=== PATIENT | female | born 1980 | race Asian ===

== ENCOUNTER → 2019-01-17 13:45 | Outpatient (CLI) | payer OTHER, SELFPAY ==
[2019-01-17 15:46] LABS: Blood Urea Nitrogen 16 mg/dL (7-17); Calcium 9.3 mg/dL (8.4-10.2); Carbon Dioxide 23 mmol/L (22-32); Chloride 100 mmol/L (98-107); Estimated Glomerular Filt Rate > 60.0 mL/min (>60); Glucose 358 mg/dL (70-100); HEMOLYSIS < 15 (0-50); Lipase 106 U/L (23-300); Potassium 4.3 mmol/L (3.4-5.1); Sodium 134 mmol/L (137-145)
[2019-01-17 16:03] LABS: Clostridium Difficile Tox PCR Negative for C. diff
== END ==
PROVIDERS: Visit Provider Physician Assistant
DX: R11.0 Nausea (principal); R19.7 Diarrhea, unspecified
CPT/HCPCS: 36415; 80048; 83690; 87493

== ENCOUNTER → 2019-07-04 15:29 | Outpatient (CLI) | payer OTHER, SELFPAY | PROVIDERS: Visit Provider Nurse Practitioner Family | DX: N89.8 Other specified noninflammatory disorders of vagina (principal) | CPT/HCPCS: 87210 ==

== ENCOUNTER → 2019-07-04 15:35 | Outpatient (CLI) | payer OTHER, SELFPAY ==
[2019-07-04 16:57] LABS: Pregnancy Test Urine Negative (Negative)
[2019-07-04 17:08] LABS: Hematocrit 39.9 % (36-46); Hemoglobin 13.4 g/dL (12.0-16.0); Mean Corpuscular HGB Conc 33.6 % (30-36); Mean Corpuscular Hemoglobin 28.1 PG (26-34); Mean Corpuscular Volume 83.6 fL (80-100); Platelet Count 268 X10^3/uL (150-400); Red Blood Cell Count 4.77 X10^6/uL (4.0-5.2); Red Cell Distribution Width 12.6 % (11.6-14.8); White Blood Cell Count 6.9 X10^3/uL (4.5-11.0)
[2019-07-04 17:10] LABS: Hemoglobin A1C% w Est Avg Glu > 14.0 % (4.0-6.0)
== END ==
PROVIDERS: PCP Nurse Practitioner Family; Referring Provider Nurse Practitioner Family; Visit Provider Nurse Practitioner Family
DX: N93.9 Abnormal uterine and vaginal bleeding, unspecified (principal); N89.8 Other specified noninflammatory disorders of vagina; E11.65 Type 2 diabetes mellitus with hyperglycemia
CPT/HCPCS: 36415; 81025; 83036; 85027; 87210

== ENCOUNTER → 2019-07-08 10:15 | Outpatient (CLI) | payer OTHER, SELFPAY ==
[2019-07-08 11:45] LABS: Alanine Aminotransferase 15 IU/L (<35); Albumin 4.5 g/dL (3.5-5.0); Albumin Globulin Ratio 1.2 (1.0-2.8); Alkaline Phosphatase 162 U/L (38-126); Aspartate Aminotransferase 21 IU/L (14-36); BUN Creatinine Ratio 51.2 (6-22); Bilirubin Total 0.8 mg/dL (0.2-1.3); Blood Urea Nitrogen 21 mg/dL (7-17); Calcium 9.9 mg/dL (8.4-10.2); Carbon Dioxide 25 mmol/L (22-32); Chloride 95 mmol/L (98-107); Estimated Glomerular Filt Rate > 60.0 mL/min (>60); Globulin 3.8 g/dL (1.7-4.1); Glucose 428 mg/dL (70-100); HEMOLYSIS < 15 (0-50); Sodium 130 mmol/L (137-145); Total Protein 8.3 g/dL (6.3-8.2)
[2019-07-08 11:50] LABS: Hemoglobin A1C% w Est Avg Glu > 14.0 % (4.0-6.0)
[2019-07-09 08:40] LABS: Insulin Level Total 6.6 uIU/mL (2.6-24.9)
== END ==
PROVIDERS: PCP Family Medicine; Referring Provider Family Medicine; Visit Provider Family Medicine
DX: E11.9 Type 2 diabetes mellitus without complications (principal)
CPT/HCPCS: 36415; 80053; 83036; 83525

== ENCOUNTER → 2019-09-23 14:54 | Outpatient (CLI) | payer OTHER, SELFPAY ==
[2019-09-23 16:53] LABS: Alanine Aminotransferase 10 IU/L (<35); Albumin 4.2 g/dL (3.5-5.0); Albumin Globulin Ratio 1.3 (1.0-2.8); Alkaline Phosphatase 75 U/L (38-126); Aspartate Aminotransferase 22 IU/L (14-36); BUN Creatinine Ratio 32.6 (6-22); Bilirubin Total 0.6 mg/dL (0.2-1.3); Blood Urea Nitrogen 14 mg/dL (7-17); Calcium 9.8 mg/dL (8.4-10.2); Carbon Dioxide 27 mmol/L (22-32); Chloride 103 mmol/L (98-107); Cholesterol 289 mg/dL (140-199); Estimated Glomerular Filt Rate > 60.0 mL/min (>60); Globulin 3.2 g/dL (1.7-4.1); Glucose 197 mg/dL (70-100); HDL Cholesterol 51 mg/dL (40-60); HEMOLYSIS < 15 (0-50); LDL Cholesterol Calculated 220 mg/dL (<100); Potassium 4.8 mmol/L (3.4-5.1); Sodium 135 mmol/L (137-145); Total Protein 7.4 g/dL (6.3-8.2); Triglycerides 90 mg/dL (35-150)
[2019-09-23 16:54] LABS: C-Reactive Protein Quant < 0.5 mg/dL (<1.0)
[2019-09-23 17:19] LABS: Hemoglobin A1C% w Est Avg Glu 11.2 % (4.0-6.0)
== END ==
PROVIDERS: PCP Family Medicine; Referring Provider Family Medicine; Visit Provider Family Medicine
DX: E11.9 Type 2 diabetes mellitus without complications (principal); E78.5 Hyperlipidemia, unspecified
CPT/HCPCS: 36415; 80053; 80061; 83036; 86140

== ENCOUNTER → 2019-11-25 15:02 | Outpatient (CLI) | payer OTHER, SELFPAY ==
[2019-11-25 15:54] LABS: Add Manual Diff / Slide Review NO; Basophils Absolute Auto 0 /uL (0-100); Basophils Percent Auto 0.5 % (0-2); Eosinophils Absolute Auto 200 /uL (0-450); Eosinophils Percent Auto 3.1 % (2-4); Hematocrit 38.7 % (36-46); Lymphocytes Absolute Auto 1700 /uL (1100-4500); Lymphocytes Percent Auto 29.9 % (25-40); Mean Corpuscular HGB Conc 33.5 % (30-36); Mean Corpuscular Hemoglobin 28.1 PG (26-34); Monocytes Absolute Auto 500 /uL (0-900); Monocytes Percent Auto 8.4 % (3-14); Neutrophils Absolute Auto 3200 /uL (1500-7000); Neutrophils Percent Auto 58.1 % (50-75); Platelet Count 236 X10^3/uL (150-400); Red Blood Cell Count 4.61 X10^6/uL (4.0-5.2); Red Cell Distribution Width 13.7 % (11.6-14.8); White Blood Cell Count 5.6 X10^3/uL (4.5-11.0)
[2019-11-25 16:04] LABS: Alanine Aminotransferase 13 IU/L (<35); Albumin 4.2 g/dL (3.5-5.0); Albumin Globulin Ratio 1.1 (1.0-2.8); Alkaline Phosphatase 83 U/L (38-126); Aspartate Aminotransferase 21 IU/L (14-36); BUN Creatinine Ratio 23.2 (6-22); Bilirubin Total 0.5 mg/dL (0.2-1.3); Blood Urea Nitrogen 13 mg/dL (7-17); Calcium 9.6 mg/dL (8.4-10.2); Carbon Dioxide 26 mmol/L (22-32); Chloride 106 mmol/L (98-107); Estimated Glomerular Filt Rate > 60.0 mL/min (>60); Globulin 3.9 g/dL (1.7-4.1); Glucose 119 mg/dL (70-100); HEMOLYSIS < 15 (0-50); Potassium 4.2 mmol/L (3.4-5.1); Sodium 140 mmol/L (137-145); Total Protein 8.1 g/dL (6.3-8.2)
[2019-11-25 16:09] LABS: Hemoglobin A1C% w Est Avg Glu 8.7 % (4.0-6.0)
== END ==
PROVIDERS: PCP Family Medicine; Referring Provider Family Medicine; Visit Provider Family Medicine
DX: D64.9 Anemia, unspecified (principal); E11.9 Type 2 diabetes mellitus without complications
CPT/HCPCS: 36415; 80053; 83036; 85025

== ENCOUNTER → 2020-07-12 10:16 | Outpatient (CLI) | payer OTHER, SELFPAY ==
[2020-07-12] MEDS: COVID-19 VACC #1, MRNA(MOD) 100 MCG/0.5 ML VIAL IM (10:33)
== END ==
PROVIDERS: PCP Family Medicine; Visit Provider Internal Medicine
DX: Z23 Encounter for immunization (principal)
CPT/HCPCS: 0011A; 91301

== ENCOUNTER → 2020-08-17 07:39 | Outpatient (CLI) | payer OTHER, SELFPAY ==
[2020-08-17] MEDS: COVID-19 VACC #2, MRNA(MOD) 100 MCG/0.5 ML VIAL IM (07:51)
== END ==
PROVIDERS: PCP Family Medicine; Visit Provider Internal Medicine
DX: Z23 Encounter for immunization (principal)
CPT/HCPCS: 0012A; 91301

== ENCOUNTER → 2020-08-22 11:52 | Outpatient (CLI) | payer OTHER, SELFPAY ==
[2020-08-22 13:18] LABS: Hemoglobin A1C% w Est Avg Glu > 14.0 % (4.0-6.0)
[2020-08-22 13:32] LABS: Alanine Aminotransferase 11 IU/L (<35); Albumin 4.3 g/dL (3.5-5.0); Albumin Globulin Ratio 1.1 (1.0-2.8); Alkaline Phosphatase 107 U/L (38-126); Aspartate Aminotransferase 21 IU/L (14-36); Bilirubin Total 0.6 mg/dL (0.2-1.3); Blood Urea Nitrogen 13 mg/dL (7-17); Calcium 9.7 mg/dL (8.4-10.2); Carbon Dioxide 24 mmol/L (22-32); Chloride 100 mmol/L (98-107); Estimated Glomerular Filt Rate > 60.0 mL/min (>60); Globulin 3.8 g/dL (1.7-4.1); Glucose 401 mg/dL (70-100); HEMOLYSIS < 15 (0-50); Potassium 4.4 mmol/L (3.4-5.1); Sodium 134 mmol/L (137-145); Total Protein 8.1 g/dL (6.3-8.2)
[2020-08-22 16:29] LABS: Creatinine Urine Random 35.2 mg/dL
[2020-08-22 16:33] LABS: Microalbumi Creatinin Ratio Ur 176.1 ug/mg CR (<30); Microalbumin Urine Random 6.2 mg/dL (0-1.6)
== END ==
PROVIDERS: PCP Family Medicine; Referring Provider Family Medicine; Visit Provider Family Medicine
DX: E11.29 Type 2 diabetes mellitus with other diabetic kidney complication (principal); R80.9 Proteinuria, unspecified
CPT/HCPCS: 36415; 80053; 82043; 82570; 83036

== ENCOUNTER → 2020-10-24 12:24 | Outpatient (CLI) | payer OTHER, SELFPAY ==
[2020-10-24 13:58] LABS: Alanine Aminotransferase 8 IU/L (<35); Albumin 3.9 g/dL (3.5-5.0); Albumin Globulin Ratio 1.1 (1.0-2.8); Alkaline Phosphatase 89 U/L (38-126); Aspartate Aminotransferase 18 IU/L (14-36); BUN Creatinine Ratio 23.9 (6-22); Bilirubin Total 0.3 mg/dL (0.2-1.3); Blood Urea Nitrogen 11 mg/dL (7-17); Calcium 9.3 mg/dL (8.4-10.2); Carbon Dioxide 22 mmol/L (22-32); Chloride 106 mmol/L (98-107); Estimated Glomerular Filt Rate > 60.0 mL/min (>60); Globulin 3.6 g/dL (1.7-4.1); Glucose 243 mg/dL (70-100); HEMOLYSIS < 15 (0-50); Potassium 4.2 mmol/L (3.4-5.1); Sodium 135 mmol/L (137-145); Total Protein 7.5 g/dL (6.3-8.2)
[2020-10-24 14:03] LABS: Hemoglobin A1C% w Est Avg Glu 9.9 % (4.0-6.0)
== END ==
PROVIDERS: PCP Family Medicine; Referring Provider Family Medicine; Visit Provider Family Medicine
DX: E11.65 Type 2 diabetes mellitus with hyperglycemia (principal)
CPT/HCPCS: 36415; 80053; 83036

== ENCOUNTER → 2020-11-21 09:02 | Outpatient (CLI) | payer OTHER, SELFPAY ==
--- NOTE | 2020-11-21 17:08 | DIAB.INIT ---
Initial Diabetes Education Assessment Name: Ivory Poe Date: 11/21/20 Time: 935-11am Dx:Type II Diabetes c hyperglycemia Provider: Brandon Preferred Learning Style: Watching, Hands-on Ivory presents today for diabetes education. FH of DM with both parents and paternal grandparents. States she has had DM since 2004, after moving the the in 2003. Reports h/o omission of insulin r/t lack of insurance. On two occasions she has been between jobs and without insurance. This caused her to discontinue and/or to under dose her medications for 2-3 years. Reports this was also during a time when she was struggling with depression. Reports stress with home life, marital stress, and endorses suicidal ideation without a plan. H/o seeing psychiatrist, but she did not like taking zoloft. Open to seeing a therapist. Endorses hospitalization hx r/t hyperglycemia. Was seeing an endo in [place], who rx'd Metformin 2500 mg and insulin daily. Also endorses taking Januvia in the past. Provider notes indicate that she may also be forgetful in taking insulin, though she denies this today. h/o NPH and Lantus endorsed during 7-8 years ago. Denies any recent dilated eye exams, dental visits, or checking her feet. Carb intake seems within recommendations (30-45g per meal). Physical activity has been low as of late. Medications and emotions seem to be the biggest barriers to her DM care. Anthropometrics Ht: 67 Wt: 200# Physical Activity: Nothing recently, though was going to the gym 4 d per week the last few months for 60 min. h/o losing 30# with exercising one hour every day prior to covid-- this was also when she was not taking DM meds. Also goes swimming once per week with daughter. States she really enjoys going to the gym. Pertinent Labs: hgA1c: 9.9% H cholesterol 289 H LDL: 127 H HDL: 51 Self-Monitoring Blood Glucose: All recent BG readings above target, with exception to one after meal reading of 122 mg/L. Date Pre Post Pre Post Pre Post HS 11/12 216 379 9/7 248 9/8 334 9/12 353 122 11/19 242 314 14 271 294 11/21 212 Diabetes Medications: Ivory is currently taking more insulin than rx'd and still experiencing hyperglycemia. She is worried about providing this information since she realizes this is much more than rx'd. Reports often taking meal time insulin after starting meal. Denies any hypoglcemia. Seems to be taking Novolog for breakfast and dinner, not at lunch. Metformin 500 mg BID Lantus 35units Novolog 20-30u Medical/Surgical History (Last Reviewed 09/23/19 @ 15:48 by Danielito Taylor DO) Diabetes (~2004) History of bipolar disorder Vaginal bleeding Intervention: This participant was very receptive. Provided appropriate educational handouts. Discussed the following topics: Completed intake assessment. Discussed barriers to care. Pathophysiology of type 2 diabetes Impact of emotions of self care. Therapy resources in this area covered by her insurance. Importance of self-monitoring, how often, and when to check. Plate Method, carbohydrate counting, pairing macronutrients for better blood glucose management General recommended servings for carbohydrates at meals and snacks Role of physical activity Hypoglycemia s/s and tx Insulin action times and recommendations for when to take Created SMART goals for patient self-care and success. Seems Ivory might benefit from increasing Metformin to 1000 mg BID, if provider agrees. Endorses this dose in the past without side effect. We could then see how blood sugars look and adjust Lantus for fasting numbers. Cost is a barrier for her, so if she can take more Metformin and less insulin it seems this may be a benefit. She tells me she will see her provider next week to evaluate medication regimen and will provide him blood sugar logs as discussed. Goals: Reinstate gym 3-5 x per week Call therapist Bring BG to provider next visit Follow-up: WILMA LUGO follow-up in 2-3 weeks Topics for future: HgA1c and rationale for goal, nutrition meal plan, emotions/stress mgmgnt, risk reduction (dental, eye, foot care) Julia Judd, WILMA, QUINTINES Certified Diabetes Care and Flag Football Coach P: [phone] Thank you for this referral
== END ==
PROVIDERS: PCP Family Medicine; Referring Provider Family Medicine; Visit Provider Family Medicine
DX: E11.65 Type 2 diabetes mellitus with hyperglycemia (principal); Z71.3 Dietary counseling and surveillance; Z79.4 Long term (current) use of insulin
CPT/HCPCS: G0108

== ENCOUNTER → 2020-12-06 09:30 | Outpatient (CLI) | payer OTHER, SELFPAY ==
--- NOTE | 2020-12-06 14:58 | DIAB.FU ---
Follow-up Diabetes Education Assessment Name: Ivory Poe Date: 12/06/20 Time: 624-3356a Dx: Type II Diabetes Provider: Brandon Anthropometrics: Ht: 67 Wt: 200# reported Ivory presents for Dm ed follow-up. Has seen her provider since last visit. Metformin increased to 1000 mg BID, Lantus increased to 40u HS. Continues taking Novolog before meals 20-30 u, sometimes only BID. Reports trying to reduce carb portions and eat more lean proteins. Worried about cholesterol in eggs. States she will sometimes skip breakfast and eat double portions at lunch out of excessive hunger. Also endorses emotional eating at times. Tearful today about home life with marital issues and with bipolar dx. Plans to see therapist for first visit this afternoon, and she is really looking forward to this. Reports sadness about her mother dying when she was 17 y/o. Mother was dx with DM three months before passing. States she too was stressed and depressed. Reports times of suicidal ideation without plan, but motivation for living is her daughter, Ryann. Physical Activity: Has worked out a schedule with her so she can go to the gym in the morning x5 days per week for cardio and weight lifting. She is very happy about this. Self-Monitoring Blood Glucose: Though many readings are above target, there is improvement. 1/3 in range fasting. All other readings above ADA targets. States it is difficult for her to check BG at work, which makes it difficult to manage insulin dose. May be a good candidate for Freestyle tres. Date Pre Post Pre Post Pre Post HS 11/29 272 11/30 164 201 12/01 185 12/02 219 324 no novolog 12/03 107 209 12/04 206 227 12/05 210 30 min pc Diabetes Medications: Ivory states she has been trying to increase novolog to help with morning numbers, which is ineffective. Metformin 1000 mg BID Lantus 40u HS Novolog 20-30u TID (often BID) Pertinent Labs: HgA1c 8.8% H Past Medical History: (Last Reviewed 09/23/19 @ 15:48 by Danielito Taylor DO) Diabetes (~2004) History of bipolar disorder Vaginal bleeding Intervention: This participant was very receptive. Provided appropriate educational handouts. Discussed the following topics: Recent blood sugar results and trends Medication management what numbers Lantus v Novolog impact potential for tailoring Novolog if she has more bg readings to review Review of general nutrition recommendations and current intake Impact of skipped meals on portions and BG Egg nutrition recs SMBG with Freestyle Tres as an option Depression and diabetes burnout Physical activity plan and impact on blood sugars Created SMART goals for patient self-care and success. Goals: Reinstate gym 3-5 x per week- met Call therapist- met Bring BG to provider next visit- met Try not to skip meals- new Check fasting BG as much as possible more consistently (especially morning)- new Call insurance about Freestyle tres- new incorporate eggs in moderation into diet- new If FBG in the morning are >130 mg/dL, increase by 2 units at night q 3 days until in goal- new We devised a plan to first target her fasting numbers in the morning by adjusting Lantus according to the OP insulin protocol. Plan to discuss pre-meal readings, nutrition, and insulin needs more in depth next visit (again using OP insulin protocol). Will message provider in regards to this. Follow-up: WILMA LUGO follow-up in 2-3 weeks Future topics: Prevention of complications: foot care, dental and eye appointments, kidney and heart health, neuropathy, vaccination recommendations Julia Judd RDN, BRITTNEY Certified Diabetes Care and Pigskin Trimmer P: [phone] Thank you for this referral
== END ==
PROVIDERS: PCP Family Medicine; Referring Provider Family Medicine; Visit Provider Family Medicine
DX: E11.9 Type 2 diabetes mellitus without complications (principal); Z79.4 Long term (current) use of insulin; Z71.3 Dietary counseling and surveillance
CPT/HCPCS: G0108

== ENCOUNTER → 2020-12-19 12:52 | Outpatient (CLI) | payer OTHER, SELFPAY ==
--- NOTE | 2020-12-20 13:53 | DIAB.FU ---
Follow-up Diabetes Education Assessment Name: Ivory Poe Date: 12/19/20 Time: 1-230p Dx: Type II Diabetes Provider: Brandon Deeptipiterjerome presents for diabetes ed follow-up. Received Freestyle Tres and is really enjoying using it. Brought lindsay to review recent BG. See below for SMBG results. Today she is wondering how to dose her insulin per her BG and food intake. States she has kept carb content low, but still experiencing hyperglycemia. Had elevations while on vacation last week due to high carb. Has been eating a balanced breakfast daily. Does not take lunch insulin due to thinking she must keep the insulin cold at all times. This results in taking Novolog BID. Ivory reports hoarding her insulin. States she tries to spread out her insulin use as to avoid running out. This seems to stem from having times without insurance or insulin. Reports she understands that she can get insulin from [facility] if needed one day, but in general worries about running out of meds. Also reports finances as a barrier to medication. She may be a good candidate for GLP1 or SGLT2i if her insurance will cover it. If affordable, this would assist her in her weight loss efforts, reduce blood sugars, and potentially limit the insulin needed. Her and her are attending therapy, which is really improving her mood and stress level per her report. Physical Activity: Gym at 8am before work. Self-Monitoring Blood Glucose: Went on vacation this past week and endorses high carb intake resulting in BG elevations. States her readings were <150s FBG prior to vacation, now in the 180-200s. Has increased Lantus to 50units to compensate for high fastings. States some days she is not fasting a full 8 hours before checking FBG. All recent readings elevated. Likely in part due to skipping insulin doses. Freestyle Tres: 3% time in range. Avg B mg/dL Date Pre Post Pre Post Pre Post HS 12/13 195 12/14 210 251 12/15 203 235 12/16 189 343 12/17 254 291 12/18 218 194 380 12/19 194 148 Diabetes Medications: Metformin 1000 mg BID Lantus 40-50u HS Novolog 20-30u BID Pertinent Labs: HgA1c 8.8% H Past Medical History: (Last Reviewed 07/17/20 @ 15:48 by Danielito Taylor DO) Diabetes (~2004) History of bipolar disorder Vaginal bleeding Intervention: This participant was very receptive. Provided appropriate educational handouts. Discussed the following topics: Recent blood sugar results and trends Medication management- Correction bolus (1u:50 points) and insulin to carb ratio (1:10, likely need to adjust to 1:8 next visit but will see how readings look after incorporating insulin TID) Insulin storage education for Novolog Review of general nutrition recommendations and current intake Importance of taking insulin consistently and no hoarding. Discussed plan if insurance coverage were to d/c. Created SMART goals for patient self-care and success. Goals: Try not to skip meals- met Check fasting BG as much as possible more consistently (especially morning)- met Call insurance about Freestyle tres- met incorporate eggs in moderation into diet- met If FBG in the morning are >130 mg/dL, increase by 2 units at night q 3 days until in goal- met/in progress Log insulin in lindsay- new Take novolog to work for lunch dose- new Follow carb coverage and correction- new Fast for 8 hours for FBG in the morning- new Follow-up: WILMA LUGO follow-up in 2-3 weeks. WILMA LUGO will sign up for Freestyle Tres shared BG for her device and call her in a few days to review med adjustments as needed. Julia Judd RDN, BRITTNEY Certified Diabetes Care and Utility Bill Collection Clerk P: [phone] Thank you for this referral
== END ==
PROVIDERS: PCP Family Medicine; Referring Provider Family Medicine; Visit Provider Family Medicine
DX: E11.9 Type 2 diabetes mellitus without complications (principal); Z71.3 Dietary counseling and surveillance; Z79.84 Long term (current) use of oral hypoglycemic drugs; Z79.4 Long term (current) use of insulin
CPT/HCPCS: G0108

== ENCOUNTER → 2021-01-02 10:24 | Outpatient (CLI) | payer OTHER, SELFPAY ==
--- NOTE | 2021-01-03 09:52 | DIAB.FU ---
Follow-up Diabetes Education Assessment Name: Ivory Poe Date: 01/02/21 Time: 9130-4540a Dx: Type II Diabetes Provider: Brandon Ivory presents today with , Randall. States she has been using Freestyle Tres for BG checks, taking Novolog TID (which is a great improvement), and following the correction and I:C ratio discussed last visit. States her and Randall have decided against continuing couple therapy due to finances. Randall did mention potential for free counseling at a [facility]. This was encouraged. They both endorse a tough last few years for them as a couple, and this stress has impacted Ivory's DM care in the past. Physical Activity: Stopped going to the gym for the last 2 weeks, but plans to restart this. Reports success in the past with keeping gym clothes in the care. Past barrier was questioning why she goes to they gym so much, but he seems more supportive now. Self-Monitoring Blood Glucose: Great improvement! 77% in range with an average BG of 157 mg/dL. Most readings are <200 mg/dL, unless she forgets her Lantus. She will often forget her 50u of Lantus before bed when very tired. Does not go to bed until 11p-1a due to work schedule. When she forgets Lantus, FBG often 220-285 mg/dL. Previously she has used Novolog to correct any hyperglycemia, this has improved with increasing Lantus to cover FBG. Sometimes still taking more than indicated in I:C ratio or correction. Overall, much improved. Recent FB (today), 129, 137 H, 285 H, 239 H, 145 H, 223 H Diabetes Medications: 50u Lantus HS Novolog 5-20u I:C = 1:10 correction = 1:50 Pertinent Labs: HgA1c 8.8% H Cholesterol: 289 H LDL: 220 H HDL: 51 T Past Medical History: (Last Reviewed 09/23/19 @ 15:48 by Danielito Taylor DO) Diabetes (~2004) History of bipolar disorder Vaginal bleeding Intervention: This participant was very receptive. Provided appropriate educational handouts. Discussed the following topics: Recent blood sugar results and trends Medication management Review of general nutrition recommendations and current intake Physical activity plan and impact on blood sugars Created SMART goals for patient self-care and success. Goals: Log insulin in lindsay- not met Take novolog to work for lunch dose- met Follow carb coverage and correction- met/in progress Fast for 8 hours for FBG in the morning- met Take Lantus at 11pm each night- new Put gym clothes in care- new Attend gym 3 x per week- new Follow I:C ratio and correction- new Follow-up: WILMA LUGO follow-up in 3-4 weeks Julia Judd RDN, BRITTNEY Certified Diabetes Care and Solar Pool Heating Installer P: [phone] Thank you for this referral
== END ==
PROVIDERS: PCP Family Medicine; Referring Provider Family Medicine; Visit Provider Family Medicine
DX: E11.9 Type 2 diabetes mellitus without complications (principal); Z71.3 Dietary counseling and surveillance; Z79.4 Long term (current) use of insulin
CPT/HCPCS: G0108

== ENCOUNTER → 2021-02-14 10:48 | Outpatient (CLI) | payer OTHER, SELFPAY ==
[2021-02-14 13:36] LABS: Hemoglobin A1C% w Est Avg Glu 7.5 % (4.0-6.0)
[2021-02-14 13:42] LABS: Alanine Aminotransferase 13 IU/L (<35); Albumin 4.6 g/dL (3.5-5.0); Albumin Globulin Ratio 1.2 (1.0-2.8); Alkaline Phosphatase 72 U/L (38-126); Aspartate Aminotransferase 22 IU/L (14-36); BUN Creatinine Ratio 26.7 (6-22); Bilirubin Total 0.6 mg/dL (0.2-1.3); Blood Urea Nitrogen 12 mg/dL (7-17); Calcium 9.2 mg/dL (8.4-10.2); Carbon Dioxide 24 mmol/L (22-32); Chloride 104 mmol/L (98-107); Estimated Glomerular Filt Rate > 60.0 mL/min (>60); Globulin 3.9 g/dL (1.7-4.1); Glucose 82 mg/dL (70-100); HEMOLYSIS < 15 (0-50); Sodium 137 mmol/L (137-145); Total Protein 8.5 g/dL (6.3-8.2)
[2021-02-14 16:10] LABS: Creatinine Urine Random 105.4 mg/dL
--- NOTE | 2021-02-14 16:59 | DIAB.FU ---
Follow-up Diabetes Education Assessment Name: Ivory Poe Date: 02/14/21 Time: 5365-7204 Dx: Type II Diabetes Ivory presents today for diabetes follow-up. States her and her , Randall, have decided to continue couples therapy, which really seems to help her mental health and self-care. Reports h/o feeling shame about her Dm. States she use to feel like she caused this to happen (dx at age 24). Reports that caused her to avoid caring about her DM. She continues to take her novolog TID now (taking pen to work). She continues to use correction and I:C ratio as discussed. Seems some meals she is under dosing for amt of food consumed. Aware of hypo tx with juice. No longer missing lantus doses since setting a time to take at 11p each night. Does report some difficulty with eating schedule at work. She may go long periods of time without eating, then eat a large dinner before bed (ie cake, chips, 60-1.5-2c noodles with tofu). Additionally, she has been juicing celery for a 20oz juice in the morning which causes elevations in her BG per her report. Physical Activity: Stopped going to the gym due to schedule conflicts with work and home. States she feels unmotivated to exercise on her days off, but is open to trying. Off from work 2-3 days per week. Considering moving to closer gym here in town for convenience, however this is more expensive. Self-Monitoring Blood Glucose: Endorses elevated morning readings when she eats large carb meal after work around midnight. This often results in readings around 200 mg/dL. 5/7 elevated FBG. 1/3 elevated pc. 1 of 2 elevated HS. 2/4 elevated pre meal lunch and dinner. TIR for 7 days 54%. This is down from the 77% last visit. She attributes this to larger dinner meals and reduced activity. Date Pre Post Pre Post Pre Post HS 02/08 110 / 212 12/5 169 12/6 241 198 217 / 186 134 117 131 /8 86 154 175 136 / 230 112 Diabetes Medications: 50u Lantus HS Novolog 5-20u I:C = 1:10 correction = 1:50 Pertinent Labs: HgA1c 8.8% H (plans to get new labs today) Cholesterol: 289 H LDL: 220 H HDL: 51 T Past Medical History: (Last Reviewed 09/23/19 @ 15:48 by Danielito Taylor DO) Diabetes (~2004) History of bipolar disorder Vaginal bleeding Intervention: This participant was very receptive. Provided appropriate educational handouts. Discussed the following topics: Recent blood sugar results and trends Medication management: I:C ratio and covering appropriately Review of general nutrition recommendations and current intake Physical activity plan and impact on blood sugars Mental health and impact on DM Avoiding self blame that impacts self-care. Strategies to empower herself. Diabetes technology Created SMART goals for patient self-care and success. Goals: Take Lantus at 11pm each night- met Put gym clothes in care- not met Attend gym 3 x per week- not met Follow I:C ratio and correction- met and in progress Try exercising on Mondays (15 min or more to start)-new Eat breakfast- new Have a 7pm snack to avoid excessive hunger at night- fatou Dodson continues to be motivated to make changes to improve her DM. She may be a good candidate for an insulin pump if provider agrees, insurance will cover, and Ivory is open to it. Will re-evaluate. She plans to see provider this month for DM f/u. Follow-up: WILMA LUGO follow-up in 2-3 weeks Julia Judd RDN, BRITTNEY Certified Diabetes Care and Adjunct English Instructor P: [phone] Thank you for this referral
[2021-02-14 17:59] LABS: Microalbumi Creatinin Ratio Ur 381.4 ug/mg CR (<30); Microalbumin Urine Random 40.2 mg/dL (0-1.6)
== END ==
PROVIDERS: PCP Family Medicine; Referring Provider Family Medicine; Visit Provider Family Medicine
DX: E11.9 Type 2 diabetes mellitus without complications (principal); Z79.4 Long term (current) use of insulin; Z71.3 Dietary counseling and surveillance
CPT/HCPCS: 36415; 80053; 82043; 82570; 83036; G0108

== ENCOUNTER → 2021-03-07 10:57 | Outpatient (CLI) | payer OTHER, SELFPAY ==
--- NOTE | 2021-03-07 16:10 | DIAB.FU ---
Follow-up Diabetes Education Assessment Name: Ivory Poe Date: 03/07/21 Time: 1100a-1200p Dx: Type II Diabetes Ivory presents today for follow-up diabetes education with her and daughter (Ryann). Despite decrease in hgA1c, Ivory is feeling frustrated and down about BG. States she has not been watching what she eats very much and has been doing less carb counting. This is evident in her CGM reports. Reports improved urinary urgency since BG have come down. She has some questions about breakfast variety. Physical Activity: Not currently going to the gym. States she feels lazy. Working 4-5 days per week for 10 hour shifts and [address]. This 12 hour day certainly impacts her motivation to work out on work days and seemingly even on days off. Self-Monitoring Blood Glucose: Blood sugars higher than last visit. States this is due to over eating and decrease in activity on days off. States she sometimes feels she wants to treat herself on days off. Essentially she is eating larger carb meals but not necessarily covering them with insulin, resulting in hyperglycemia. Limited FBG to evaluate, but those available are variable with some <130 and others in the 150-200s. No change to Lantus. Also, she is injecting insulin into the front of her left arm. Not rotating sites. Reports confusion about where she can inject. TIR for 7 days 54% last visit. TIR has been decreasing since two visits ago (77% visit prior to last). Today's TIR is 42% for 7 days. 7d av 14d av 30d av 90d av Diabetes Medications: 50u Lantus HS Novolog 5-20u I:C = 1:10 correction = 1:50 Pertinent Labs: HgA1c: 7.5% (best value in the last four years. much improved from previous 8.8% and h/o 14%) Past Medical History: (Last Reviewed 03/07/21 @ 09:12 by Danielito Taylor DO) Diabetes (~2004) History of bipolar disorder Vaginal bleeding Intervention: This participant was very receptive. Provided appropriate educational handouts. Discussed the following topics: Recent blood sugar results and trends Medication management and injection sites/rotation Review of general nutrition recommendations and current intake Breakfast ideas Carb counting and insulin Physical activity plan and impact on blood sugars Prevention of complications Created SMART goals for patient self-care and success. Goals: Try exercising on Mondays (15 min or more to start)-not met Eat breakfast- met Have a 7pm snack to avoid excessive hunger at night- not discussed Implement family walks on Sundays- new Try a new breakfast discussed- new Rotate injection sites on suggested sites (handout provided)- new Follow-up: WILMA LUGO follow-up in 3-4 weeks Julia Judd RDN, BRITTNEY Certified Diabetes Care and Postage Machine Operator P: [phone] Thank you for this referral
== END ==
PROVIDERS: PCP Family Medicine; Referring Provider Family Medicine; Visit Provider Family Medicine
DX: E11.9 Type 2 diabetes mellitus without complications (principal); Z79.4 Long term (current) use of insulin
CPT/HCPCS: G0108

== ENCOUNTER → 2021-04-04 10:47 | Outpatient (CLI) | payer OTHER, SELFPAY ==
--- NOTE | 2021-04-04 16:27 | DIAB.FU ---
Follow-up Diabetes Education Assessment Name: Ivory Poe Date: 04/04/21 Time: Dx: Type II Diabetes Ivory presents for Dm follow-up today. States she is back at the gym and taking her lunch to work. Seems satisfied with meals and trying to keep portions of carbs to around one cup per meal. States overall she is eating more consistently which tends to help keep her from over consumption. Trying new grains, ie quinoa, farrow. Also trying new breakfast ideas. Seems to have a good relationship with food currently. Injecting now in abdomen when at home and in arm at work. Rotating sites as discussed last visit. Physical Activity: Going to the gym 4 days per week for 30 min prior to work. She is very motivated and happy about this. Self-Monitoring Blood Glucose: Some postprandial elevations, but FBG seem to be consistently >130 mg/dL. Ivory expressed some feelings of feeling guilty when she needs additional insulin. States she feels as though she is being bad if she needs an increase in units. Endorses fasting 8+ hours over night before fasting number. Readings often 180-200 mg/dL in the morning with occasional 80-150 mg/dL, this is rare and she cannot pinpoint why these numbers occur. May benefit from titrating up Lantus a little, but she would like to see if the gym helps bring these numbers down. Further, she would like to reduce evening meal portions as a trial for better FBG. Trending numbers are improving overall from last visit. Readings >240mg/dL in 7 days has improved from 26% to 7% since last visit. Time in range (TIR) has also improved. 7 day TIR: Today TIR: 50% 03/06 visit: 42% 02/14 visit: 54% 14day TIR: Today: 63% 03/06 visit: 47% Diabetes Medications: 50u Lantus HS Novolog 5-20u I:C = 1:10 correction = 1:50 Pertinent Labs: HgA1c: 7.5% Past Medical History: (Last Reviewed 03/07/21 @ 09:12 by Danielito Taylor DO) Diabetes (~2004) History of bipolar disorder Vaginal bleeding Intervention: This participant was very receptive. Provided appropriate educational handouts. Discussed the following topics: Recent blood sugar results and trends Medication management and insulin titration and BG goals injection site review Role of the pancreas and her role doing the job of her pancreas Action of long vs short acting insulin her feelings about insulin titration Review of general nutrition recommendations and current intake Physical activity plan and impact on blood sugars Created SMART goals for patient self-care and success. Goals: Implement family walks on Sundays- not met Try a new breakfast discussed- met Rotate injection sites on suggested sites (handout provided)- met Continue exercise program, if FBG cont >150 titrate Lantus up by 1-2 units- new Follow-up: WILMA LUGO follow-up in 4 weeks Ivory is very motivated today and seems to be improving her BG mgmnt. I would rec an increase in Lantus given elevated FBG, but she would like to see if lifestyle can make a difference. We decided together that in one week if they cont above 150 she will increase by 2 units. This is quite conservative, but given her feelings about increasing insulin this seems appropriate at this time. Julia Judd, WILMA, [facility] Certified Diabetes Care and Honey Processor P: [phone] Thank you for this referral
== END ==
PROVIDERS: PCP Family Medicine; Referring Provider Family Medicine; Visit Provider Family Medicine
DX: E11.9 Type 2 diabetes mellitus without complications (principal); Z79.4 Long term (current) use of insulin; Z71.3 Dietary counseling and surveillance
CPT/HCPCS: G0108

== ENCOUNTER → 2021-05-02 10:06 | Outpatient (CLI) | payer OTHER, SELFPAY ==
--- NOTE | 2021-05-07 14:29 | DIAB.FU ---
Follow-up Diabetes Education Assessment Name: Ivory Poe Date: 05/02/21 Time: 1010-1110a Dx: Type II Diabetes Ivory presents for DM ed follow-up. Reports she is worried about weight gain and elevated cholesterol. She reports balancing enjoying higher carb foods and covering with insulin with choosing healthy choices for overall health. States she continues to have elevated FBG, but is weary of increasing Lantus due to worry of weight gain. Is mostly managing BG with meal-time insulin. Building balanced meals with alfonso box style lunches. Really enjoying meals and having a dessert a lunch, which she is concerned about. Having good therapy sessions with her , which is helpful to her overall health and mental health. Reports limited sleep many nights (5 hrs) due to phone/social media use early in the morning (6a). This seems to impact her willingness to go to the gym, especially on days off. Anthropometrics: Wt: 210# reported Weight history: States her UBW is 200-210#. States her highest wt is 250#. Was 170# reportedly one year ago when she was going to the gym consistently. Physical Activity: 30 min to gym for 3 days per week. Self-Monitoring Blood Glucose: FBG today 193 and on 04/30 was 212, elevated per ADA guidelines. Some days she is forgetting insulin due to falling asleep before taking. Time in range has reduced since previous visits indicating hyperglycemia. many readings after meals are in range due to carb:insulin ratio and correction, but seems consistently having elevations when asleep and waking. 7 days: Today TIR: 36% high: 36% over 240: 28% 7 day TIR previous visits Today TIR: 50% 03/06 visit: 42% 02/14 visit: 54% Diabetes Medications: 50u Lantus HS Novolog 5-20u I:C = 1:10 correction = 1:50 Pertinent Labs: HgA1c: 7.5% Past Medical History: (Last Reviewed 03/07/21 @ 09:12 by Danielito Taylor DO) Diabetes (~2004) History of bipolar disorder Vaginal bleeding Intervention: This participant was very receptive. Provided appropriate educational handouts. Discussed the following topics: Recent blood sugar results and trends Impact of insulin on weight Moderating carb intake and increasing activity to reduce insulin needs Medication management Review of general nutrition recommendations and current intake What success looked like when she was going to the gym more. Sleep impact on her activity and BG Created SMART goals for patient self-care and success. Goals: Continue exercise program, if FBG cont >150 titrate Lantus up by 1-2 units- not met Go to the gym on your days off- new Set alarm to wake at 7-8am- new Follow-up: WILMA LUGO follow-up in 3-4 weeks Julia Judd RDN, [place] Certified Diabetes Care and Underwear Cutter P: [phone] Thank you for this referral
== END ==
PROVIDERS: PCP Family Medicine; Referring Provider Family Medicine; Visit Provider Family Medicine
DX: E11.9 Type 2 diabetes mellitus without complications (principal)
CPT/HCPCS: G0108

== ENCOUNTER → 2021-05-23 13:59 | Outpatient (CLI) | payer OTHER, SELFPAY ==
--- NOTE | 2021-05-28 14:28 | DIAB.FU ---
Follow-up Diabetes Education Assessment Name: Ivory Peo Date: 05/23/21 Time: 2-3p Dx: Type II Diabetes Ivory presents for follow-up visit regarding T2Dm. States she is realizing why she needs to take Lanuts. Tried to manage her BG one day just with novolog and experienced hyperglycemia all day. Has h/o emotions around taking increased insulin dose. Also, seems to forget to take her evening Lantus often. Lately forgetting Metformin too. Also finances are a concern. Up to 55u Lantus and only about 20u Novolog at the 1:10 insulin to carb ratio + correction. Still having hyperglycemia, mostly fasting. Meals recently seems higher in carbs, ie fruit, cookies. Lower in vegetable and protein. Endorses some stress with finances and work. Picked up another day's worth of hours at work, which means she is working 10 hour days. This in combination with her commute may be a 12+ hour day. Her and her are considering moving closer to her job. she has entertained the idea of changing jobs, but she is paid best at current job per report. Sleep has improved. She is not waking early to be on her phone. Feeling more rested. Anthropometrics: Wt: 210# reported Physical Activity: Too busy with work to workout lately. Self-Monitoring Blood Glucose: time in range is trending down since last visit. Seems r/t skipped medications and high carb intake and less time to work out. Most fastings are >150 mg/dL 7 days: Today 05/23/21 TIR: 35% Moderate high: 44% Very high: 21% 7 day TIR previous visits 05/02 TIR: 36% 04/04 TIR: 50% 03/06 visit: 42% 02/14 visit: 54% Diabetes Medications: 50u Lantus HS Novolog 5-20u I:C = 1:10 correction = 1:50 Pertinent Labs: HgA1c: 7.5% Past Medical History: (Last Reviewed 03/07/21 @ 09:12 by Danielito Taylor DO) Diabetes (~2004) History of bipolar disorder Vaginal bleeding Intervention: This participant was very receptive. Provided appropriate educational handouts. Discussed the following topics: Recent blood sugar results and trends Medication management Review of general nutrition recommendations and current intake Physical activity plan and impact on blood sugars barriers to taking medications Created SMART goals for patient self-care and success. Goals: Go to the gym on your days off- not met Set alarm to wake at 7-8am- met Gym on Mondays and - new Increase veggies and pro at meals- new take lantus and metformin at 830pm- new Follow-up: WILMA LUGO follow-up in 2-3 weeks Ivory'yousif insulin regimen does seem off balance (usual goal of 50% lantus and 50% novolog). Historically her after meal readings have been improving and her fastings remain high. Currently she is having hyperglycemia pretty consistently in the morning and sometimes into the day. Will see if when she is more consistent with metformin and lantus if this changes. Encouraged her to schedule f/u with PCP. Julia Judd RDN, [facility] [place][NOTE 3] Certified Diabetes Care and Sales Representative Facility Services P: [phone] Thank you for this referral
== END ==
PROVIDERS: PCP Family Medicine; Referring Provider Family Medicine; Visit Provider Family Medicine
DX: E11.65 Type 2 diabetes mellitus with hyperglycemia (principal)
CPT/HCPCS: G0108

== ENCOUNTER → 2021-06-20 13:56 | Outpatient (CLI) | payer OTHER, SELFPAY ==
--- NOTE | 2021-06-25 09:41 | DIAB.FU ---
Follow-up Diabetes Education Assessment Name: Ivory Poe Date: 06/20/21 Time: 210-310 Dx: Type II Diabetes Ivory presents for follow-up regarding T2DM. Her main concern today is losing her healthcare insurance. She recently had an inpatient stay with a behavioral health unit for self-harm risk. States she was feeling overwhelmed by working additional hours and her long commute. Feels better emotionally, but very worried about losing insurance and needing a plan for insulin. Currently looking for a new job. Has enough insulin to last another month. We devised a plan today if she needs to switch to NPH and humulin R. Physical Activity: Not discuss today. Self-Monitoring Blood Glucose: Not discussed today. Diabetes Medications: 50u Lantus HS Novolog 5-20u I:C = 1:10 correction = 1:50 Pertinent Labs: HgA1c: 7.5% 02/14/21; due for new labs. Past Medical History: (Last Reviewed 03/07/21 @ 09:12 by Danielito Taylor DO) Diabetes (~2004) History of bipolar disorder Vaginal bleeding Intervention: This participant was very receptive. Provided appropriate educational handouts. Discussed the following topics: emotions and stress management Medication management Insurance resources Goals: Gym on Mondays and - not discussed today Increase veggies and pro at meals- not discussed today take lantus and metformin at 830pm- not discussed today Apply for Medicaid- new Call [facility] if having issues getting Tres covered- new Check expiration dates on medication rx and call provider prn- new Follow NPH/Humulin R regimen if needed- new Follow-up: WILMA LUGO follow-up prn Today we focused on Ivory's main worry, which is insurance and medications. She was encouraged to call my office anytime for questions or concerns. She was also encouraged to contact her provider to update him on the status of her insurance, rx expiration, and labs. She agreed. Julia Judd RDN, [facility] [place][NOTE 2]KATHR[place] Certified Diabetes Care and Jewel Hole Finish Opener P: [phone] Thank you for this referral
== END ==
PROVIDERS: PCP Family Medicine; Referring Provider Family Medicine; Visit Provider Family Medicine
DX: E11.9 Type 2 diabetes mellitus without complications (principal); Z79.4 Long term (current) use of insulin; Z71.3 Dietary counseling and surveillance
CPT/HCPCS: G0108

== ENCOUNTER → 2022-02-27 16:53 | Outpatient (CLI) | payer SELFPAY ==
[2022-02-27 17:38] LABS: Influenza A - CEPHEID Flu A POSITIVE (NEGATIVE); Influenza B - CEPHEID Flu B NEGATIVE (NEGATIVE); Respiratory Syncytial Virus Negative (Negative)
[2022-02-27 17:50] LABS: COVID-19 CEPHEID 4-PLEX PCR Negative (Negative)
== END ==
PROVIDERS: PCP Family Medicine; Visit Provider Physician Assistant Medical
DX: J06.9 Acute upper respiratory infection, unspecified; Z20.822 Contact with and (suspected) exposure to COVID-19
CPT/HCPCS: 0241U

== ENCOUNTER → 2022-05-27 12:29 | Outpatient (CLI) | payer OTHER, SELFPAY ==
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
== END ==
PROVIDERS: PCP Family Medicine; Referring Provider Nurse Practitioner Family; Visit Provider Nurse Practitioner Family
DX: M25.511 Pain in right shoulder (principal); R07.9 Chest pain, unspecified
CPT/HCPCS: 71046; 73030

== ENCOUNTER → 2022-06-11 16:56 | Outpatient (CLI) | payer OTHER, SELFPAY | PROVIDERS: Visit Provider Nurse Practitioner Family | DX: J02.9 Acute pharyngitis, unspecified (principal) | CPT/HCPCS: 87070 ==

== ENCOUNTER → 2022-06-19 17:15 | Outpatient (CLI) | payer OTHER, SELFPAY ==
--- NOTE | 2022-06-19 17:28 | DI.RAD.S_ITS ---
PROCEDURE: XR CHEST 2V INDICATIONS: Chronic Cough TECHNIQUE: 2 views of the chest were acquired. COMPARISON: [facility], CR, XR CHEST 1 VIEW, 06/26/2019, 19:46. [facility], CR, XR CHEST 2V, 05/27/2022, 12:29. FINDINGS: Surgical changes and devices: Left chest wall mild left tourniquet device. Lungs and pleura: Mild opacity at the right lower lobe. Decreased opacity at the left upper lobe. No pleural effusions or pneumothorax. Mediastinum: Mediastinal contours are normal. Heart size is normal. Bones and chest wall: No suspicious bony abnormalities. Soft tissues appear unremarkable. IMPRESSION: Mild right lower lobe opacity. Suspect pneumonia. Decreased opacity at the left upper lobe. Dictated by: Caleb Benson M.D. on 06/19/2022 at 23:29 Approved by: Caleb Benson M.D. on 06/19/2022 at 23:31
== END ==
PROVIDERS: PCP Family Medicine; Referring Provider Family Medicine; Visit Provider Family Medicine
DX: R05.3 Chronic cough (principal); R06.02 Shortness of breath
CPT/HCPCS: 71046

== ENCOUNTER → 2022-08-08 10:02 | Outpatient (CLI) | payer OTHER, SELFPAY ==
[2022-08-08 10:31] LABS: Add Manual Diff / Slide Review NO; Basophils Absolute Auto 0 /uL (0-100); Basophils Percent Auto 0.7 % (0-2); Eosinophils Absolute Auto 200 /uL (0-450); Eosinophils Percent Auto 4.1 % (2-4); Hematocrit 34.4 % (36-46); Hemoglobin 11.4 g/dL (12.0-16.0); Lymphocytes Absolute Auto 1400 /uL (1100-4500); Lymphocytes Percent Auto 26.2 % (25-40); Mean Corpuscular HGB Conc 33.1 % (30-36); Mean Corpuscular Hemoglobin 25.7 PG (26-34); Mean Corpuscular Volume 77.5 fL (80-100); Monocytes Absolute Auto 400 /uL (0-900); Monocytes Percent Auto 7.6 % (3-14); Neutrophils Absolute Auto 3300 /uL (1500-7000); Neutrophils Percent Auto 61.4 % (50-75); Platelet Count 238 X10^3/uL (150-400); Red Blood Cell Count 4.44 X10^6/uL (4.0-5.2); Red Cell Distribution Width 17.3 % (11.6-14.8); White Blood Cell Count 5.5 X10^3/uL (4.5-11.0)
[2022-08-08 10:47] LABS: Alanine Aminotransferase 18 IU/L (<35); Albumin Globulin Ratio 1.1 (1.0-2.8); Alkaline Phosphatase 59 U/L (38-126); Aspartate Aminotransferase 20 IU/L (14-36); BUN Creatinine Ratio 16.7 (6-22); Bilirubin Total 0.6 mg/dL (0.2-1.3); Blood Urea Nitrogen 8 mg/dL (7-17); Calcium 8.6 mg/dL (8.4-10.2); Carbon Dioxide 24 mmol/L (22-32); Chloride 102 mmol/L (98-107); Cholesterol 233 mg/dL (140-199); Estimated Glomerular Filt Rate > 60 mL/min (>60); Globulin 3.6 g/dL (1.7-4.1); Glucose 152 mg/dL (70-100); HDL Cholesterol 43 mg/dL (40-60); HEMOLYSIS < 15 (0-50); LDL Cholesterol Calculated 177 mg/dL (<100); Potassium 4.1 mmol/L (3.4-5.1); Sodium 133 mmol/L (137-145); Total Protein 7.6 g/dL (6.3-8.2); Triglycerides 66 mg/dL (35-150)
[2022-08-08 11:18] LABS: TSH w/ Reflex to FT4 0.98 uIU/mL (0.47-4.68)
--- NOTE | 2022-08-08 14:44 | DI.MG.S_ITS ---
BILATERAL DIGITAL SCREENING MAMMOGRAM 3D/2D WITH CAD: 08/08/2022 CLINICAL: Routine screening. Baseline exam. No prior exams were available for comparison. There are scattered areas of fibroglandular density in both breasts (category b / 25%-50% glandular tissue). Current study was also evaluated with a Computer Aided Detection (CAD) system. No significant masses, calcifications, or other findings are seen in either breast. IMPRESSION: NEGATIVE There is no mammographic evidence of malignancy. A 1 year screening mammogram is recommended. Based on the Tyrer Cuzick model (a risk assessment model) the patient's lifetime risk is 10.4% and her 10 year risk is 1.5%. According to the ACR, ACS, and NCCN guidelines, an annual breast MRI exam along with mammogram is recommended if the patient's lifetime risk is 20% or greater. This exam was interpreted at Station ID: [id number]. NOTE: For mammograms, a report in lay terms will be sent to the patient. Approximately 15% of breast malignancies will not be visualized mammographically. In the management of a palpable breast mass, a negative mammogram must not discourage biopsy of a clinically suspicious lesion. Electronically Signed By: Caleb mann/linwood:08/08/2022 21:51:59 letter sent: Normal Exam ACR BI-RADS Category 1: Negative 3341F
[2022-08-08 15:01] LABS: Creatinine Urine Random 54.4 mg/dL
[2022-08-08 15:07] LABS: Microalbumin Urine Random 25.3 mg/dL (0-1.6)
[2022-08-09 07:03] LABS: x Labcorp Estim. Avg Glu (eAG) 212 mg/dL (.)
== END ==
PROVIDERS: PCP Family Medicine; Referring Provider Family Medicine; Visit Provider Family Medicine
DX: E11.29 Type 2 diabetes mellitus with other diabetic kidney complication (principal); E11.65 Type 2 diabetes mellitus with hyperglycemia; R80.9 Proteinuria, unspecified; Z13.29 Encounter for screening for other suspected endocrine disorder; Z13.220 Encounter for screening for lipoid disorders; E11.9 Type 2 diabetes mellitus without complications; Z00.00 Encounter for general adult medical examination without abnormal findings; Z12.31 Encounter for screening mammogram for malignant neoplasm of breast; Z79.4 Long term (current) use of insulin
CPT/HCPCS: 36415; 77063; 77067; 80053; 80061; 82043; 82570; 83036; 84443; 85025

== ENCOUNTER → 2023-02-09 08:38 | Outpatient (CLI) | payer OTHER, SELFPAY ==
[2023-02-09 09:06] LABS: Add Manual Diff / Slide Review NO; Basophils Absolute Auto 0 /uL (0-100); Basophils Percent Auto 0.6 % (0-2); Eosinophils Absolute Auto 100 /uL (0-450); Eosinophils Percent Auto 2.2 % (2-4); Hematocrit 39.2 % (36-46); Hemoglobin 12.9 g/dL (12.0-16.0); Lymphocytes Absolute Auto 1300 /uL (1100-4500); Mean Corpuscular HGB Conc 32.9 % (30-36); Mean Corpuscular Hemoglobin 26.4 PG (26-34); Mean Corpuscular Volume 80.3 fL (80-100); Monocytes Absolute Auto 500 /uL (0-900); Monocytes Percent Auto 7.9 % (3-14); Neutrophils Absolute Auto 4600 /uL (1500-7000); Neutrophils Percent Auto 70.3 % (50-75); Platelet Count 210 X10^3/uL (150-400); Red Blood Cell Count 4.89 X10^6/uL (4.0-5.2); Red Cell Distribution Width 15.3 % (11.6-14.8); White Blood Cell Count 6.6 X10^3/uL (4.5-11.0)
[2023-02-09 09:11] LABS: Hemoglobin A1C% w Est Avg Glu 10.3 % (4.0-6.0)
[2023-02-09 09:28] LABS: Alanine Aminotransferase 16 IU/L (<35); Albumin 4.1 g/dL (3.5-5.0); Albumin Globulin Ratio 1.1 (1.0-2.8); Alkaline Phosphatase 111 U/L (38-126); Aspartate Aminotransferase 23 IU/L (14-36); BUN Creatinine Ratio 30.2 (6-22); Bilirubin Total 0.6 mg/dL (0.2-1.3); Blood Urea Nitrogen 16 mg/dL (7-17); Calcium 9.5 mg/dL (8.4-10.2); Carbon Dioxide 24 mmol/L (22-32); Chloride 101 mmol/L (98-107); Cholesterol 255 mg/dL (140-199); Estimated Glomerular Filt Rate > 60 mL/min (>60); Globulin 3.8 g/dL (1.7-4.1); Glucose 339 mg/dL (70-100); HDL Cholesterol 34 mg/dL (40-60); HEMOLYSIS < 15 (0-50); LDL Cholesterol Calculated 194 mg/dL (<100); Sodium 128 mmol/L (137-145); Total Protein 7.9 g/dL (6.3-8.2); Triglycerides 134 mg/dL (35-150)
[2023-02-09 09:32] LABS: HEMOLYSIS < 15 (0-50); Iron 61 ug/dL (37-170)
[2023-02-09 09:42] LABS: Percent Iron Saturation 15 % (15-50); Total Iron Binding Capacity 401 ug/dL (265-497); Transferrin 345 mg/dL (206-381)
[2023-02-09 10:13] LABS: Vitamin B12 212 pg/mL (239-931)
== END ==
PROVIDERS: PCP Family Medicine; Referring Provider Family Medicine; Visit Provider Family Medicine
DX: E78.5 Hyperlipidemia, unspecified (principal); E11.65 Type 2 diabetes mellitus with hyperglycemia; D64.9 Anemia, unspecified
CPT/HCPCS: 36415; 80053; 80061; 82607; 83036; 83540; 83550; 85025

== ENCOUNTER → 2023-03-17 10:03 | Outpatient (CLI) | payer OTHER, SELFPAY ==
--- NOTE | 2023-03-19 16:43 | DIAB.MNT ---
Initial Diabetes Medical Nutrition Therapy Assessment Name: Ivory Poe Date: 03/17/23 Time: 7347-2069a Dx: Type II Diabetes Ivory presents for initial Dm visit. Last RD/CDCES visit was 2021. Social barriers: changing jobs, financial barriers, stress (work/ h/o marital stress). States insurance will not cover insulin, which does not sound correct. Currently picking up insulin from [facility] (NPH and regular) d/t affordability. Gets FSL from [facility] pharmacy. After we called pharmacy, we were informed that [facility] is not contracted with her insurance, hence the reason her insulin is not covered there. Currently on a coupon phipps for JASMIN. Switched rxs to [facility] to see if insulin would be covered at contracted pharmacy. Endorses stress with work and changing job frequency. Feeling like a failure. 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 Was working in [employer] previously, but felt unappreciated and overworked. Reports stress eating sweets. Diet recall indicates protein, higher carb hs snack. Diet Recall: 9a: 1c rice and veg 12p: 1 c rice, meat, veg sn: ice cream x one serving 5p; 1c pasta, calos and veg OR chx, rice and veg Hs snack: cup cake or cookie or craisins and cheese Beverages: water Anthropometrics: Ht: 67 Wt: 230# last PCP 02/10/23 Physical Activity: Has gym membership she is not using. Would like to return. Self-Monitoring Blood Glucose: FSL first generation. Elevations after meals and >130 fastings. TIme in range: 10% very high 27% high 63% target range 0% low GMI 7.4% Avg Bmg/dl Diabetes Medications: Metformin 1000mg BID NPH 30u BID Regular 20u TID Pertinent Labs: 10.7% Hga1c 02/2023 Past Medical History: (Last Reviewed 02/10/23 @ 15:35 by Danielito Taylor DO) Chronic cough Diabetes (~2004) Diabetic neuropathy History of bipolar disorder Hyperlipidemia Hypernatremia Seasonal allergic rhinitis Vaginal bleeding Well adult exam Nutrition Rx: Carbohydrates: Meal:45g CHO Snack:15-30g Nutrition Diagnosis: - Inconsistent protein intake r/t lack of time/stage of change to make protein option aeb pt report and diet recall - Excessive CHO intake r/t snack option/choices aeb diet recall and hyperglycemia Intervention: This participant was very receptive. Provided appropriate educational handouts. Discussed the following topics: Completed intake assessment. Discussed barriers to care. Macronutrient pairing Recommended servings for carbohydrates at meals and snacks Medication management: differences between insulins, action times, titrating PHarmacy: We switched her rx today to [facility], which seems to be contracted with her insurance Review of BG goals, including TIR of 75% or more FSL options: first gen v. FSL2 v FSL3 Provided FSL3 sample Role of physical activity and plan Created SMART goals for patient self-care and success. Goals: Add protein to each meal Gym 2x per week HS snack: fruit and cheese occupational health nurse rx from [facility] Trial CGM FSL3 Follow-up: WILMA LUGO follow-up in 2-3 weeks Julia Judd RDN, [place] Certified Diabetes Care and Explosives Mixer Operator P: [phone] Thank you for this referral
== END ==
PROVIDERS: PCP Family Medicine; Referring Provider Family Medicine; Visit Provider Family Medicine
DX: E11.9 Type 2 diabetes mellitus without complications (principal); Z79.4 Long term (current) use of insulin; Z79.84 Long term (current) use of oral hypoglycemic drugs; Z71.3 Dietary counseling and surveillance
CPT/HCPCS: 97802

== ENCOUNTER → 2023-04-07 10:58 | Outpatient (CLI) | payer OTHER, SELFPAY ==
--- NOTE | 2023-04-10 14:28 | DIAB.FU ---
Follow-up Diabetes Education Assessment Name: Ivory Poe Date: 04/07/23 Time: 1110a-1215p Dx: Type II Diabetes Ivory presents for Dm follow-up. Reports [facility] has all meds now, which is in network with her insurance; however the insulin is still too expensive. Sticking with OTC NPH versions from [facility]. PCP had rx'd Jardiance. She has not picked this up or asked for cost from pharmacy yet. Reports improved mental health with current/new job. Less hours, but able to spend more time with family. Tried the FSL3 and really likes it. Physical Activity: Has not restarted gym yet. Self-Monitoring Blood Glucose: Today: Time in range: 3% very high 24% high 72% target range 1% low 0% very low GMI 7.0% Avg Bmg/dl Last Visit: Time in range: 10% very high 27% high 63% target range 0% low GMI 7.4% Avg Bmg/dl Diabetes Medications: Metformin 1000mg BID NPH 30u BID Regular 20u TID Pertinent Labs: 10.7% Hga1c 02/2023 Past Medical History: (Last Reviewed 02/10/23 @ 15:35 by Danielito Taylor DO) Chronic cough Diabetes (~2004) Diabetic neuropathy History of bipolar disorder Hyperlipidemia Hypernatremia Seasonal allergic rhinitis Vaginal bleeding Well adult exam Intervention: This participant was very receptive. Provided appropriate educational handouts. Discussed the following topics: Recent blood sugar results and trends Medication management: jardiance action and benefits; med costs; insulin actions Review of general nutrition recommendations and current intake Physical activity plan and impact on blood sugars Treatment of lows making supplies more affordable Created SMART goals for patient self-care and success. Goals: Add protein to each meal- improved Gym 2x per week- not met HS snack: fruit and cheese- not discussed cutting room supervisor rx from [facility]- d/c Trial CGM FSL3- met Check hypoglycemia results from CGM with meter- new Ask [facility] about Jardiance cost Ask [facility] about FSL3 cost If FSL3 >$75, call FSL number and request coupon Follow-up: WILMA LUGO follow-up in 2-3 weeks Julia Judd RDN, [place] Certified Diabetes Care and Engine Assembly Supervisor P: [phone] Thank you for this referral
== END ==
PROVIDERS: PCP Family Medicine; Referring Provider Family Medicine; Visit Provider Family Medicine
DX: E11.9 Type 2 diabetes mellitus without complications (principal); Z79.84 Long term (current) use of oral hypoglycemic drugs; Z79.4 Long term (current) use of insulin; Z71.3 Dietary counseling and surveillance
CPT/HCPCS: G0108

== ENCOUNTER → 2023-04-28 11:00 | Outpatient (CLI) | payer OTHER, SELFPAY ==
--- NOTE | 2023-05-07 09:49 | DIAB.FU ---
Follow-up Diabetes Education Assessment Name: Ivory Poe Date: 04/28/23 Time: 1105-12 Dx: Type II Diabetes Ivory presents for DM follow-up. Reports managing her BG well. States she has had such improvements with BG that now she can feel low <70 (vs <80) and can also feel elevations 180-200mg/dl. States she no longer is feeling guilt with taking insulin. use to feel that she was a bad diabetic if she needed insulin. Now covering her meals more adequately with mealtime insulin. Eating less meat recently. Choosing lean options when eating meat. Small ice cream portions reported. CGM more affordable at $60/mo with insurance, which she is very happy about. Has some questions about insulin actions again. Has not had pharmacy run the Jardiance rx'd by PCP. Not sure of cost. Would be beneficial for her to add an oral and reduce insulin burden, if affordable. Taking NPH from [facility] due to cost of insulins at her pharmacy. Physical Activity: No program. h/o gym membership. Self-Monitoring Blood Glucose: Improved BG per CGM. >80% in range without any very high (>250) BG over the last 14days. Multiple nights with lows <70mg/dl. May benefit from reduction in HS NPH. Today: Time in range: 0% very high 9% high 88% target range 3% low 0% very low GMI 6.4% Avg Bmg/dl Last Visit: Time in range: 3% very high 24% high 72% target range 1% low 0% very low GMI 7.0% Avg Bmg/dl Diabetes Medications: Metformin 1000mg BID NPH 30u BID Regular 10-20u TID Pertinent Labs: 10.7% Hga1c 02/2023 Past Medical History: (Last Reviewed 02/10/23 @ 15:35 by Danielito Taylor DO) Chronic cough Diabetes (~2004) Diabetic neuropathy History of bipolar disorder Hyperlipidemia Hypernatremia Seasonal allergic rhinitis Vaginal bleeding Well adult exam Intervention: This participant was very receptive. Provided appropriate educational handouts. Discussed the following topics: Recent blood sugar results and trends Medication management and insulin actions Review of general nutrition recommendations and current intake Motivations for BG management for her: family and alf health Benefits of Jardiance Created SMART goals for patient self-care and success. Goals: Check hypoglycemia results from CGM with meter- cont Ask [facility] about Jardiance cost- in progress Ask [facility] about FSL3 cost- met If FSL3 >$75, call FSL number and request coupon- d/c Check in with pharmacy about Jardiance- new Reduce HS NPH by 2u- new Follow-up: WILMA LUGO follow-up in 2-3 weeks Julia Judd RDN, [place] Certified Diabetes Care and Principal Cloud Architect P: [phone] Thank you for this referral
== END ==
PROVIDERS: PCP Family Medicine; Referring Provider Family Medicine; Visit Provider Family Medicine
DX: E11.9 Type 2 diabetes mellitus without complications (principal); Z79.84 Long term (current) use of oral hypoglycemic drugs; Z79.4 Long term (current) use of insulin; Z71.3 Dietary counseling and surveillance
CPT/HCPCS: G0108

== ENCOUNTER → 2023-05-19 10:32 | Outpatient (CLI) | payer OTHER, SELFPAY ==
--- NOTE | 2023-05-20 16:21 | DIAB.MNTFU ---
Addendum entered by Julia Judd 05/27/23 11:06: Phone call: Pharmacy ran out of FSL3 CGM sensors. Waiting on refill. Does not have a meter. Eating more balanced meals per report. Still going to gym. NPH at 30u BID and mealtime insulin 10-20u now that she is eating some carbs. Unable to evaluate bg since no meter or sensor. Enc her to call pharmacy for both a check on sensor and meter supplies. She agreed. Original Note: Follow-up Diabetes Medical Nutrition Therapy Assessment Name: Ivory Poe Date: 05/19/23 Time: 2068-4699 Dx: Type II Diabetes Ivory presents for Dm follow-up. Reports low to moderate carb and low protein diet. Diet is mostly vegetables. Due to the diet changes, she has had changes to insulin regimen that have actually resulted in more hyperglycemia. Inconsistent about mealtime insulin dose. Seems to be experiencing low and highs. Lows exacerbated by new gym regimen. Wants to have more guidance on a set meal plan and insulin recs. States she is avoiding meat/eggs, mostly due to feeling as though she has less pain or inflammation with lower or no meat intake. Experimenting with lentil omelette or chips homemade. A CGM sensor came off in her sleep. Has not called company for replacement. Checked with pharmacy about Jardiance, too expensive. Interested in possible insulin pump pending cost. RD will reach out to rep about cost and coverage. Diet Recall: 10-11a; salad with sweet potato and fruit 5p: veg soup with salad sometimes adds shrimp Hs: nuts or handful chips Anthropometrics: Ht: 67 Wt: 230# 02/2023 Physical Activity: Started going to the gym daily, 30 min cardio and 45 min weights. Self-Monitoring Blood Glucose: Reduced time in range due to an increase in elevations since last visit. Today: Time in range: 3% very high 30% high 65% target range 2% low 0% very low GMI 7.0% Avg Bmg/dl Last Visit: Time in range: 0% very high 9% high 88% target range 3% low 0% very low GMI 6.4% Avg Bmg/dl Diabetes Medications: Metformin 1000mg BID NPH 30u BID (taking 10u BID) Regular 10-20u TID (taking 0-10u) Pertinent Labs: 10.7% Hga1c 02/2023 Past Medical History: (Last Reviewed 02/10/23 @ 15:35 by Danielito Taylor DO) Chronic cough Diabetes (~2004) Diabetic neuropathy History of bipolar disorder Hyperlipidemia Hypernatremia Seasonal allergic rhinitis Vaginal bleeding Well adult exam Nutrition Rx: Carbohydrates: Meal:30-45g Snack:15-30g Protein: Meal: 20-25g Snack: 7-14g Nutrition Diagnosis: Inconsistent carb intake r/t aiming to reduce insulin use and BG aeb pt report and diet recall Inadequate protein intake r/t avoiding meat and eggs aeb diet recall Intervention: This participant was very receptive. Provided appropriate educational handouts. Discussed the following topics: Blood sugar review and trends. Impact of food intake and insulin regimen on results. Plate Method, meal timing, carbohydrate counting, pairing macronutrients and spreading out carbohydrates for better blood glucose management Meal planning and carb counting review Physical activity plan and progress CGM resources for new sensor Created SMART goals for patient self-care and success. Goals: Check in with pharmacy about Jardiance- met Reduce HS NPH by 2u- d/c Try 15u NPH BID- new Try 10u TID with meals- new Add protein to meals/snacks- new Eat q 3-5 hours Call [facility] for replacement sensor- new Add beans/lentils to salad- new Follow-up: WILMA LUGO follow-up in 1 week over phone or messaging about BG. Then she would like to f/u after next labs and PCP visit. Julia Judd RDN, [place] Certified Diabetes Care and Addiction Counselor P: [phone] Thank you for this referral
== END ==
LOC: DIET 10:32
PROVIDERS: PCP Family Medicine; Referring Provider Family Medicine; Visit Provider Family Medicine
DX: E11.65 Type 2 diabetes mellitus with hyperglycemia (principal); Z79.84 Long term (current) use of oral hypoglycemic drugs; Z79.4 Long term (current) use of insulin; Z71.3 Dietary counseling and surveillance
CPT/HCPCS: 97803

== ENCOUNTER → 2023-06-26 08:03 | Outpatient (CLI) | payer OTHER, SELFPAY ==
[2023-06-26 08:53] LABS: Hemoglobin A1C% w Est Avg Glu 6.9 % (4.0-6.0)
[2023-06-26 09:03] LABS: Alanine Aminotransferase 12 IU/L (<35); Albumin 4.2 g/dL (3.5-5.0); Albumin Globulin Ratio 1.3 (1.0-2.8); Alkaline Phosphatase 60 U/L (38-126); Aspartate Aminotransferase 22 IU/L (14-36); BUN Creatinine Ratio 25.9 (6-22); Blood Urea Nitrogen 14 mg/dL (7-17); Calcium 9.2 mg/dL (8.4-10.2); Carbon Dioxide 23 mmol/L (22-32); Chloride 108 mmol/L (98-107); Cholesterol 216 mg/dL (140-199); Estimated Glomerular Filt Rate > 60 mL/min (>60); Globulin 3.3 g/dL (1.7-4.1); Glucose 113 mg/dL (70-100); HDL Cholesterol 39 mg/dL (40-60); HEMOLYSIS < 15 (0-50); LDL Cholesterol Calculated 163 mg/dL (<100); Potassium 4.7 mmol/L (3.4-5.1); Sodium 138 mmol/L (137-145); Total Protein 7.5 g/dL (6.3-8.2); Triglycerides 68 mg/dL (35-150)
== END ==
PROVIDERS: PCP Family Medicine; Referring Provider Family Medicine; Visit Provider Family Medicine
DX: E78.00 Pure hypercholesterolemia, unspecified (principal); E11.65 Type 2 diabetes mellitus with hyperglycemia; E11.42 Type 2 diabetes mellitus with diabetic polyneuropathy
CPT/HCPCS: 36415; 80053; 80061; 83036

== ENCOUNTER → 2023-06-30 14:00 | Outpatient (CLI) | payer OTHER, SELFPAY ==
--- NOTE | 2023-07-08 17:40 | DIAB.MNTFU ---
Addendum entered by Julia Judd 08/04/23 14:03: 6.9% HgA1c 06/2023 much improved from previous labs Original Note: Follow-up Diabetes Medical Nutrition Therapy Assessment Name: Ivory Poe Date: 06/30/23 Time: 230-340p Dx: Type II Diabetes Ivory presents for Dm follow-up. Balancing meals well with increased veggies, protein and moderate to low carb most times. Meal prepping for meals. Reviewed recent meal portions via photos. States she will occasionally skip her meal time insulin due to forgetting at work. Experiencing some lows after elevations and over correcting with insulin. Likely exacerbated by regular insulin vs fast acting-- resulting in insulin stacking with delayed action of regular insulin. She has questions regarding recent labs and cholesterol. Needing review of how to treat lows on the go. Anthropometrics: Ht: 67 Wt: 228.25# today at PCP Physical Activity: gym 5 x per week-- wt lifting 45-60 min, cardio 10 min. Self-Monitoring Blood Glucose: Similar TIR as last visit with some small improvement. Slightly under goal of TIR of 75% or more. Elevations mostly after meals, where FBG often in goal. Today: Time in range: 3% very high 27% high 67% target range 3% low 0% very low GMI 6.9% Avg Bmg/dl Variability: 32.8% Last Visit: Time in range: 3% very high 30% high 65% target range 2% low 0% very low GMI 7.0% Avg Bmg/dl Diabetes Medications: Metformin 1000mg BID NPH 30u BID Regular 20u TID Pertinent Labs: 10.7% Hga1c 02/2023 Past Medical History: (Last Updated 06/30/23 @ 14:02 by Danielito Taylor DO) Chronic cough Diabetes (~2004) Diabetic neuropathy History of bipolar disorder Hyperlipidemia Hypernatremia Hyponatremia Seasonal allergic rhinitis Vaginal bleeding Well adult exam Nutrition Rx: Carbohydrates: Meal:30-45g Snack:15-30g Protein: Meal: 20-25g Snack: 7-14g Nutrition Diagnosis: Inconsistent carb intake r/t aiming to reduce insulin use and BG aeb pt report and diet recall- improved Inadequate protein intake r/t avoiding meat and eggs aeb diet recall- improved Excessive CHO intake r/t some meals >45g CHO aeb diet recall - new Intervention: This participant was very receptive. Provided appropriate educational handouts. Discussed the following topics: Blood sugar review and trends. Impact of food intake and insulin on results. Insulin actions and correction and avoiding lows Carrying quick carbs for tx of lows Changing insulin dose according to meal Meal planning and carb counting review Physical activity plan and progress Created SMART goals for patient self-care and success. Goals: Try 15u NPH BID- d/c Try 10u TID with meals- d/c Add protein to meals/snacks- met Eat q 3-5 hours- improved Call [facility] for replacement sensor- met Add beans/lentils to salad- not discussed Carry glucose tabs with you- new if BG <100 premeal = 10u (45g CHO)- new If BG >100 pre meal =20u (45g CHO)- new Aim for 45g CHO at each meal- continue Follow-up: WILMA LUGO follow-up in 2-3 weeks Julia Judd RDN, BRITTNEY Certified Diabetes Care and Ash Conveyor Operator P: [phone] Thank you for this referral
== END ==
PROVIDERS: PCP Family Medicine; Referring Provider Family Medicine; Visit Provider Family Medicine
DX: E11.9 Type 2 diabetes mellitus without complications (principal); Z79.4 Long term (current) use of insulin; Z79.84 Long term (current) use of oral hypoglycemic drugs; Z71.3 Dietary counseling and surveillance
CPT/HCPCS: 97803

== ENCOUNTER → 2023-08-04 14:02 | Outpatient (CLI) | payer OTHER, SELFPAY ==
--- NOTE | 2023-08-19 17:26 | DIAB.MNTFU ---
Follow-up Diabetes Medical Nutrition Therapy Assessment Name: Ivory Poe Date: 08/04/23 Time: 205-305 Dx: Type II Diabetes Ivory presents for Dm visit. Stopped taking meal time insulin as an experiment however did see elevations as a result. Was able to do this at lunch at work without hyperglycemia likely due to increased movement and lower CHO/more veggies. Measuring CHO portions. Carrying glucose tabs for lows, but using renata milk lately. Eating veggies first, then pro, then CHO. Getting sick of eating this way. does this for BG purposes per report. Trying to increase fiber intake using mixed grains. Not taking statin currently, and she did have elevated cholesterol last labs. Would like easy to prep veggie ideas. Feels her wt loss has stalled, but seeing changes in clothing and strength indicating changes in body composition. Sometimes goes long periods of time without eating. Feels she may benefit from returning to therapy. Anthropometrics: Ht: 67 Wt: 228.25# PCP 06/2023-- no recent wt, declined wt today Physical Activity: Attending gym 7 days per week most weeks. No gym last week due to back pain with at home injury, however back to gym now. Self-Monitoring Blood Glucose: Increased elevations since skipping insulin doses. Also waking with higher BG than last visit. Today: Time in range: 5% very high 31% high 63% target range 1% low 0% very low GMI 7.3% Avg B mg/dl Variability: 27.4% Last Visit: 3% very high 27% high 67% target range 3% low 0% very low GMI 6.9% Avg Bmg/dl Variability: 32.8% Diabetes Medications: Metformin 1000mg BID NPH 30u BID Regular 0-20u TID Pertinent Labs: Hga1c 10.7% 02/2023 6.9% 06/2023 Past Medical History: (Last Reviewed 07/30/23 @ 11:25 by Danielito Taylor DO) Chronic cough Depression Diabetes (~2004) Diabetic neuropathy History of bipolar disorder Hyperlipidemia Hypernatremia Hyponatremia Seasonal allergic rhinitis Vaginal bleeding Well adult exam Nutrition Rx: Carbohydrates: Meal:30-45g Snack:15-30g Protein: Meal: 20-25g Snack: 7-14g Nutrition Diagnosis: Excessive CHO intake r/t some meals >45g CHO aeb diet recall - improved Inconsistent energy intake r/t meal timing >5 hours between some meals aeb pt report- new Food and nutrition related knowledge deficit r/t needing more ideas for easy veggies aeb pt report- new Intervention: This participant was very receptive. Provided appropriate educational handouts. Discussed the following topics: Blood sugar review and trends. Impact of food intake and insulin dosing on results. Plate Method, impact of macronutrients on blood sugar, meal timing, pairing macronutrients and spreading out carbohydrates for better blood glucose management Meal planning Physical activity plan and progress Strategies for making veggies more available Importance of consistency of insulin and meals Benefits to statin and source of elevated cholesterol (diet and genetics) Created SMART goals for patient self-care and success. Goals: Carry glucose tabs with you- met if BG <100 premeal = 10u (45g CHO)- not met If BG >100 pre meal =20u (45g CHO)- not met Aim for 45g CHO at each meal- met Start statin as rx'd- new Eat a mix of veg, pro, cho- new Eat q 3-4 hours - new Buy RTE veggies- new Call about behavioral health resources- new Follow-up: WILMA LUGO follow-up in 4 weeks Julia Judd RDN, BRITTNEY Certified Diabetes Care and Blasting Coal Miner P: [phone] Thank you for this referral
== END ==
PROVIDERS: PCP Family Medicine; Referring Provider Family Medicine
DX: E11.65 Type 2 diabetes mellitus with hyperglycemia (principal); Z71.3 Dietary counseling and surveillance
CPT/HCPCS: 97803

== ENCOUNTER → 2023-09-01 14:07 | Outpatient (CLI) | payer OTHER, SELFPAY ==
--- NOTE | 2023-09-17 14:46 | DIAB.MNTFU ---
Follow-up Diabetes Medical Nutrition Therapy Assessment Name: Ivory Poe Date: 09/01/23 Time: 210-310p Dx: Type II Diabetes Ivory presents for Dm follow-up, accompanied by her daughter. Recent vacation, resulting in some higher BG per report. Expresses some diabetes distress in having to manage DM all the time. Tried statin but had coughing SE, encouraged discussion with PCP about other statin options. Bought more veggies recently, carrots and cucumbers. Some guilt still about using insulin and feeling like a bad diabetic needing insulin. Reports difficulty with being the main cook in the house. Sometimes skips gym because she needs to prep meals for the family. Daughter sometimes cooks, does not cook. Anthropometrics: Ht: 67 Wt: 228.25# PCP 06/2023-- no recent wt Physical Activity: No gym this month due to vacation and food prep. Self-Monitoring Blood Glucose: Improved time in range, though increase in lows. Less elevations than last visit. Time in range >70%. Today: Time in range: 3% very high 23% high 71% target range 3% low 0% very low GMI 6.9% Avg B mg/dl Variability: 33.3% Last Visit: Time in range: 5% very high 31% high 63% target range 1% low 0% very low GMI 7.3% Avg B mg/dl Variability: 27.4% Diabetes Medications: Metformin 1000mg BID NPH 30u BID Regular 0-20u TID Pertinent Labs: Hga1c 10.7% 02/2023 6.9% 06/2023 Past Medical History: (Last Reviewed 07/30/23 @ 11:25 by Danielito Taylor DO) Chronic cough Depression Diabetes (~2004) Diabetic neuropathy History of bipolar disorder Hyperlipidemia Hypernatremia Hyponatremia Seasonal allergic rhinitis Vaginal bleeding Well adult exam Nutrition Rx: Carbohydrates: Meal:30-45g Snack:15-30g Protein: Meal: 20-25g Snack: 7-14g Nutrition Diagnosis: Inconsistent energy intake r/t meal timing >5 hours between some meals aeb pt report- in progress Food and nutrition related knowledge deficit r/t needing more ideas for easy veggies aeb pt report- improved Intervention: This participant was very receptive. Provided appropriate educational handouts. Discussed the following topics: Blood sugar review and trends. Impact of food intake and insulin dosing on results. Meal prep strategies and getting more help from family Motivational interviewing for physical activity Statin importance and encouraged discussion with pcp Diabetes distress and impact on self care and self esteem DM as a chronic dx that often has roots in genetics and a number of pathophysiologies Created SMART goals for patient self-care and success. Goals: Start statin as rx'd- met Eat a mix of veg, pro, cho- met Eat q 3-4 hours - in progress Buy RTE veggies- met Call about behavioral health resources- not met Chat with PCP about statin- new Go back to gym - new have family help with meal prep 2x per week- new Follow-up: WILMA LUGO follow-up in 4-6 weeks Julia Judd RDN, BRITTNEY Certified Diabetes Care and Clinical Geneticist P: [phone] Thank you for this referral
== END ==
PROVIDERS: PCP Family Medicine; Referring Provider Family Medicine
DX: E11.9 Type 2 diabetes mellitus without complications (principal); Z71.3 Dietary counseling and surveillance; Z79.84 Long term (current) use of oral hypoglycemic drugs; Z79.4 Long term (current) use of insulin
CPT/HCPCS: 97803

== ENCOUNTER → 2023-10-23 11:01 | Outpatient (CLI) | payer OTHER, SELFPAY ==
[2023-10-23 12:03] LABS: Add Manual Diff / Slide Review NO; Basophils Absolute Auto 0 /uL (0-100); Basophils Percent Auto 0.7 % (0-2); Eosinophils Absolute Auto 200 /uL (0-450); Eosinophils Percent Auto 3.3 % (2-4); Hematocrit 36.3 % (36-46); Hemoglobin 11.9 g/dL (12.0-16.0); Lymphocytes Absolute Auto 1400 /uL (1100-4500); Lymphocytes Percent Auto 19.6 % (25-40); Mean Corpuscular HGB Conc 32.7 % (30-36); Mean Corpuscular Hemoglobin 25.7 PG (26-34); Mean Corpuscular Volume 78.6 fL (80-100); Monocytes Absolute Auto 600 /uL (0-900); Monocytes Percent Auto 8.4 % (3-14); Neutrophils Absolute Auto 4700 /uL (1500-7000); Platelet Count 206 X10^3/uL (150-400); Red Blood Cell Count 4.62 X10^6/uL (4.0-5.2); Red Cell Distribution Width 17.2 % (11.6-14.8); White Blood Cell Count 6.9 X10^3/uL (4.5-11.0)
[2023-10-23 12:27] LABS: Alanine Aminotransferase 11 IU/L (<35); Albumin 4.2 g/dL (3.5-5.0); Albumin Globulin Ratio 1.2 (1.0-2.8); Alkaline Phosphatase 77 U/L (38-126); Aspartate Aminotransferase 19 IU/L (14-36); Bilirubin Total 0.6 mg/dL (0.2-1.3); Blood Urea Nitrogen 9 mg/dL (7-17); Calcium 9.5 mg/dL (8.4-10.2); Carbon Dioxide 20 mmol/L (22-32); Chloride 104 mmol/L (98-107); Cholesterol 220 mg/dL (140-199); Estimated Glomerular Filt Rate > 60 mL/min (>60); Globulin 3.4 g/dL (1.7-4.1); Glucose 199 mg/dL (70-100); HDL Cholesterol 38 mg/dL (40-60); HEMOLYSIS < 15 (0-50); LDL Cholesterol Calculated 169 mg/dL (<100); Potassium 4.7 mmol/L (3.4-5.1); Sodium 135 mmol/L (137-145); Total Protein 7.6 g/dL (6.3-8.2); Triglycerides 64 mg/dL (35-150)
[2023-10-23 12:34] LABS: HEMOLYSIS < 15 (0-50); Iron 67 ug/dL (37-170)
[2023-10-23 12:41] LABS: Transferrin 335 mg/dL (206-381)
[2023-10-23 13:19] LABS: Vitamin B12 192 pg/mL (239-931)
[2023-10-23 14:08] LABS: Creatinine Urine Random 78.14 mg/dL
[2023-10-23 14:28] LABS: Microalbumin Urine Random 112.8 mg/dL (0-1.6)
[2023-10-23 19:43] LABS: Hemoglobin A1C% w Est Avg Glu 6.7 % (4.0-6.0)
[2023-10-24 03:09] LABS: Percent Iron Saturation 16 % (15-50); Total Iron Binding Capacity 410 ug/dL (265-497)
== END ==
PROVIDERS: PCP Family Medicine; Referring Provider Family Medicine; Visit Provider Family Medicine
DX: E87.0 Hyperosmolality and hypernatremia (principal); E78.5 Hyperlipidemia, unspecified; E11.65 Type 2 diabetes mellitus with hyperglycemia; E11.29 Type 2 diabetes mellitus with other diabetic kidney complication; R80.9 Proteinuria, unspecified; D64.9 Anemia, unspecified
CPT/HCPCS: 36415; 80053; 80061; 82043; 82570; 82607; 83036; 83540; 83550; 85025

== ENCOUNTER → 2023-12-01 09:29 | Outpatient (CLI) | payer BC, SELFPAY ==
--- NOTE | 2023-12-04 17:26 | DIAB.FU ---
Follow-up Diabetes Education Assessment Name: Ivory Poe Date: 12/01/23 Time: 935-10a Dx: Type II Diabetes Ivory presents for Dm follow-up. Reports some difficulty managing BG. Reports some high carb meals and some only veggie meals. States she is interested in insulin pump therapy. Reports she is especially concerned about her kidney labs. GFR and CR WNL, however urinalysis shows some elevated microalbumin. Encouraged her to message provider regarding this concern. Late to her appt today by 30 mins, so visit was cut short. Anthropometrics: Ht: 67 Wt: 228.25# PCP 06/2023-- no recent wt Self-Monitoring Blood Glucose: TIR indicates more hyperglycemia since last visit. Last 14 days indicate less lows, and frequent elevations. Today: Time in range: 9% very high 34% high 57% target range 0% low 0% very low GMI 7.5% Avg B mg/dl Variability: 30.1% Last Visit: Time in range: 3% very high 23% high 71% target range 3% low 0% very low GMI 6.9% Avg B mg/dl Variability: 33.3% Diabetes Medications: Metformin 1000mg BID NPH 30u BID Regular 0-20u TID Pertinent Labs: Hga1c 10.7% 02/2023 6.9% 06/2023 6.7% 10/2023 Past Medical History: (Last Reviewed 07/30/23 @ 11:25 by Danielito Taylor DO) Chronic cough Depression Diabetes (~2004) Diabetic neuropathy History of bipolar disorder Hyperlipidemia Hypernatremia Hyponatremia Seasonal allergic rhinitis Vaginal bleeding Well adult exam Intervention: This participant was very receptive. Provided appropriate educational handouts. Discussed the following topics: Blood sugar review and trends. Kidney health and lab work review Indication for insulin pump therapy, benefits, action, and answered questions Created SMART goals for patient self-care and success. Goals: Chat with PCP about statin- new Go back to gym - new have family help with meal prep 2x per week- new Message PCP regarding urinalysis- new Chat with [employer]- fatou Follow-up: WILMA LUGO follow-up in 2-3 weeks. DAGO has contacted [employer] and PCP for insulin pump therapy order. Julia Judd RDN, BRITTNEY Certified Diabetes Care and Crop Or Grain Farmworker P: [phone] Thank you for this referral
== END ==
PROVIDERS: PCP Family Medicine; Referring Provider Family Medicine
DX: E11.65 Type 2 diabetes mellitus with hyperglycemia (principal); Z71.3 Dietary counseling and surveillance; Z79.4 Long term (current) use of insulin; Z79.84 Long term (current) use of oral hypoglycemic drugs
CPT/HCPCS: G0108

== ENCOUNTER → 2023-12-08 15:59 | Outpatient (CLI) | payer BC, SELFPAY ==
--- NOTE | 2023-12-31 14:44 | DIAB.MNTFU ---
Follow-up Diabetes Medical Nutrition Therapy Assessment Name: Ivory Poe Date: 12/08/23 Time: 415-530p Dx: Type II Diabetes Ivory presents for Dm follow-up. Reports tingling on the bottom of her feet. States this has been going on for a long time. Being treated for B12 deficiency. Wondering if neuropathy symptoms are from hyperglycemia, B12 def or both. Reports reduced meat gives her less joint pain, however this means some meals are CHO and veggies. Has been avoiding fish due to thinking it is not healthy. When cutting out CHO endorses fatigue and excessive hunger. Worries about hypoglycemia, particularly with taking regular and NPH at the same time. Sometimes skips NPH HS when not eating, resulting in elevated FBG. had eye appt in June-- dilated eye exam. Diet recall: 9-10a: fruit with veggies and tempeh with 1/2c rice 230p: veggies, rice 8p: ramen OR leftover veg with rice 8-9p: chips or pudding Endorses feeling like a bad diabetic when needing more insulin, so endorses trying to reduce insulin and even skipping it at times, which does result in an elevated BG. Considering insulin pump. DAGO/BRITTNEY has submitted her info to [employer]. If affordable, she would like to move forward. Physical Activity: No gym lately, increased working hours. Anthropometrics: Ht: 67 Wt: 228.25# PCP 06/2023-- no recent wt Self-Monitoring Blood Glucose: TIR indicates less hyperglycemia since last visit, but still below goal of 70% time in target range. Last 14 days indicate more lows than last visit. Elevations after most lunch and dinners. Today: Time in range: 6% very high 30% high 62% target range 2% low 0% very low GMI 7.2% Avg B mg/dl Variability: 31.2% Last Visit: Time in range: 9% very high 34% high 57% target range 0% low 0% very low GMI 7.5% Avg B mg/dl Variability: 30.1% Diabetes Medications: Metformin 1000mg BID NPH 30u BID Regular 10-20u TID Pertinent Labs: Hga1c 10.7% 02/2023 6.9% 06/2023 6.7% 10/2023 Past Medical History: (Last Reviewed 07/30/23 @ 11:25 by Danielito Taylor DO) Chronic cough Depression Diabetes (~2004) Diabetic neuropathy History of bipolar disorder Hyperlipidemia Hypernatremia Hyponatremia Seasonal allergic rhinitis Vaginal bleeding Well adult exam Intervention: This participant was very receptive. Provided appropriate educational handouts. Discussed the following topics: Blood sugar review and trends. Insulin dosing Prevention of lows Adjusting NPH in HS accordingly Benefits of fish intake 2x per week Macro pairing for BG management Created SMART goals for patient self-care and success. Goals: Chat with PCP about statin- not discussed Go back to gym - not met have family help with meal prep 2x per week- met Message PCP regarding urinalysis- met Chat with [employer]- met Try 25-30u NPH BID- new Try 17u at meals- new If not eating HS, try reduced NPH dose- new Take meal time insulin TID- new Incorporate more fish in diet- new Follow-up: WILMA LUGO follow-up in 3-4 weeks Julia Judd RDN, BRITTNEY Certified Diabetes Care and Splitting Machine Operator Helper P: [phone] Thank you for this referral
== END ==
PROVIDERS: PCP Family Medicine; Referring Provider Family Medicine
DX: E11.9 Type 2 diabetes mellitus without complications (principal); Z79.84 Long term (current) use of oral hypoglycemic drugs; Z79.4 Long term (current) use of insulin; Z71.3 Dietary counseling and surveillance
CPT/HCPCS: 97803

== ENCOUNTER → 2024-01-07 12:02 | Outpatient (CLI) | payer BC, SELFPAY ==
--- NOTE | 2024-02-02 17:41 | DIAB.FU ---
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 Today we are setting up her 780G minimed with [employer] 4. She has regular insulin at this time, however we are in the process of trying to get her affordable quick acting insulin with [facility]. She is currently paying $160 per month for NPH N and R. With insulin coupons we should be able to find a more affordable option. After chatting with pharmacy, her insurance should cover quick insulins better if provided the covered brand of insulin. TDD: 80u (50u NPH + 30u R) 75% TDD: 60u per day wt dose: 230# x 0.23: 53u per day TDD basal: 56.5u / 2: 28u per day 28u / 24 hours; 1.15u per hour I:C: 450/56.5 TDD: 8g/1u ISF: 1800/56.5u TDD: 32mg/dl/u 06/2021 Lantus dose 50u, meal insulin ratio 1:[address] Pump settings reflect similar basal/bolus regimen. Diabetes Medications: Metformin 1000mg BID NPH 30u BID Regular 10-20u TID Pertinent Labs: Hga1c 10.7% 02/2023 6.9% 06/2023 6.7% 10/2023 Past Medical History: (Last Reviewed 07/30/23 @ 11:25 by Danielito Taylor DO) Chronic cough Depression Diabetes (~2004) Diabetic neuropathy History of bipolar disorder Hyperlipidemia Hypernatremia Hyponatremia Seasonal allergic rhinitis Vaginal bleeding Well adult exam Intervention: This participant was very receptive. Provided appropriate educational handouts. Discussed the following topics: Insulin pump set up Navigating pump: bolusing and correction dosing Changing sites and getting supplies Quick insulin resources Goals: Wear insulin pump Bolus and use correction doses prn Follow-up: WILMA LUGO follow-up in 1 week or sooner. Julia Judd RDN, QUINTINES Certified Diabetes Care and Youth Support Worker P: [phone] Thank you for this referral
== END ==
PROVIDERS: PCP Family Medicine; Referring Provider Family Medicine
DX: E11.65 Type 2 diabetes mellitus with hyperglycemia (principal); Z96.41 Presence of insulin pump (external) (internal); Z71.3 Dietary counseling and surveillance; E11.69 Type 2 diabetes mellitus with other specified complication; R80.9 Proteinuria, unspecified; Z79.4 Long term (current) use of insulin; Z79.84 Long term (current) use of oral hypoglycemic drugs
CPT/HCPCS: G0108

== ENCOUNTER → 2024-01-12 11:12 | Outpatient (CLI) | payer BC, SELFPAY ==
--- NOTE | 2024-02-12 08:02 | DIAB.FU ---
Follow-up Diabetes Education Assessment Name: Ivory Poe Date: 01/12/24 Time: 2746-0830b Dx: Type II Diabetes Ivory presents for insulin pump follow-up accompanied by [employer] outside dealer sales representative. She has successfully changed her site. Feels this is life changing. Needing some review on correction v CHO bolus. Not always bolusing for snacks. Asking difference between types of pumps. Still using regular insulin for pump. Plans to switch to fast acting soon. Waiting on pharmacy. Already fewer lows and elevations TDD: 80u (50u NPH + 30u R) 75% TDD: 60u per day wt dose: 230# x 0.23: 53u per day TDD basal: 56.5u / 2: 28u per day 28u / 24 hours; 1.15u per hour I:C: 450/56.5 TDD: 8g/1u ISF: 1800/56.5u TDD: 32mg/dl/u 06/2021 Lantus dose 50u, meal insulin ratio 1:[address]. Pump settings reflect similar basal/bolus regimen. Self-Monitoring Blood Glucose: [employer] system CGM TIR 11% high 88% in range 1% low avg 140mg/dl Diabetes Medications: Metformin 1000mg BID Regular insulin via pump Pertinent Labs: Hga1c 10.7% 02/2023 6.9% 06/2023 6.7% 10/2023 Past Medical History: (Last Reviewed 07/30/23 @ 11:25 by Danielito Taylor DO) Chronic cough Depression Diabetes (~2004) Diabetic neuropathy History of bipolar disorder Hyperlipidemia Hypernatremia Hyponatremia Seasonal allergic rhinitis Vaginal bleeding Well adult exam Intervention: This participant was very receptive. Provided appropriate educational handouts. Discussed the following topics: Impact pump has had on her life Correction v CHO bolusing When to bolus When to change CGM sensor (weekly) Differences between pump types (AID, auto corrections, tubes) Goals: Wear insulin pump- met Bolus and use correction doses prn- in progress Change CGM sensor weekly- new Try bolus for snacks - new Follow-up: WILMA LUGO follow-up in 1 week Julia Judd RDN, BRITTNEY Certified Diabetes Care and Journeyman Powerhouse Operator P: [phone] Thank you for this referral
== END ==
PROVIDERS: PCP Family Medicine; Referring Provider Family Medicine
DX: E11.65 Type 2 diabetes mellitus with hyperglycemia (principal); Z71.3 Dietary counseling and surveillance; Z79.4 Long term (current) use of insulin; Z79.84 Long term (current) use of oral hypoglycemic drugs; E11.69 Type 2 diabetes mellitus with other specified complication; R80.9 Proteinuria, unspecified
CPT/HCPCS: G0108

== ENCOUNTER → 2024-01-19 08:32 | Outpatient (CLI) | payer BC, SELFPAY ==
--- NOTE | 2024-02-12 08:13 | DIAB.FU ---
Follow-up Diabetes Education Assessment Name: Ivory Poe Date: 01/19/24 Time: 835-9a Dx: Type II Diabetes Ivory presents for insulin pump follow-up accompanied by [employer] veterans employment representative. Sometimes forgetting her Metformin, resulting in elevations. States she aims for q 12 hours, but will forget. Changed infusion site and reservoir this morning, with regular insulin. Plans to sweet pickle maker fast acting today. Some elevated day time numbers even after bolus, will increase I:C for daytime. Reduced time in range, which may be r/t to both forgetting Metformin but also due to guessing how much insulin to bolus for instead of doing her usual carb counting. TDD: 80u (50u NPH + 30u R) 75% TDD: 60u per day wt dose: 230# x 0.23: 53u per day TDD basal: 56.5u / 2: 28u per day 28u / 24 hours; 1.15u per hour I:C: 450/56.5 TDD: 8g/1u; ----> I:C night 1:8 and day 1:6 ISF: 1800/56.5u TDD: 32mg/dl/u 06/2021 Lantus dose 50u, meal insulin ratio 1:[address] Pump settings reflect similar basal/bolus regimen. Physical Activity: Interested in restarting the gym. Working short shifts currently 4 days per week. Self-Monitoring Blood Glucose: [employer] system CGM. Increased elevations and reduced time in range since last visit. No pump automation yet due to using regular insulin. Today TIR: 13% very high 26% high 60% in range 1% low av mg/dl Last TIR 11% high 88% in range 1% low avg 140mg/dl Diabetes Medications: Metformin 1000mg BID Regular insulin via pump Pertinent Labs: Hga1c 10.7% 02/2023 6.9% 06/2023 6.7% 10/2023 Past Medical History: (Last Reviewed 07/30/23 @ 11:25 by Danielito Taylor DO) Chronic cough Depression Diabetes (~2004) Diabetic neuropathy History of bipolar disorder Hyperlipidemia Hypernatremia Hyponatremia Seasonal allergic rhinitis Vaginal bleeding Well adult exam Intervention: This participant was very receptive. Provided appropriate educational handouts. Discussed the following topics: When to take Metformin and tips on remembering Carb counting vs guessing dose Physical activity goals Change in I:C and what that means Goals: Bolus and use correction doses prn- met Change CGM sensor weekly- met Try bolus for snacks - met Take Metformin with breakfast and dinner- new Carb count vs guessing- new Restart gym- new Contact [employer] rep after obtaining quick insulin- new Follow-up: WILMA LUGO follow-up in 2 weeks Julia Judd RDN, BRITTNEY Certified Diabetes Care and Biomedical Engineering Aide P: [phone] Thank you for this referral
== END ==
PROVIDERS: PCP Family Medicine; Referring Provider Family Medicine
DX: Z45.1 Encounter for adjustment and management of infusion pump (principal); E11.9 Type 2 diabetes mellitus without complications; Z79.84 Long term (current) use of oral hypoglycemic drugs; Z71.3 Dietary counseling and surveillance; Z96.41 Presence of insulin pump (external) (internal)
CPT/HCPCS: G0108

== ENCOUNTER → 2024-01-21 10:31 | Outpatient (CLI) | payer BC, SELFPAY ==
[2024-01-21 12:02] LABS: Add Manual Diff / Slide Review NO; Basophils Absolute Auto 0 /uL (0-100); Basophils Percent Auto 0.5 % (0-2); Eosinophils Absolute Auto 200 /uL (0-450); Eosinophils Percent Auto 2.7 % (2-4); Hematocrit 38.3 % (36-46); Hemoglobin 12.4 g/dL (12.0-16.0); Lymphocytes Absolute Auto 1700 /uL (1100-4500); Mean Corpuscular HGB Conc 32.4 % (30-36); Mean Corpuscular Hemoglobin 25.6 PG (26-34); Mean Corpuscular Volume 78.9 fL (80-100); Monocytes Absolute Auto 500 /uL (0-900); Monocytes Percent Auto 7.1 % (3-14); Neutrophils Absolute Auto 4800 /uL (1500-7000); Neutrophils Percent Auto 66.7 % (50-75); Platelet Count 238 X10^3/uL (150-400); Red Blood Cell Count 4.85 X10^6/uL (4.0-5.2); Red Cell Distribution Width 15.8 % (11.6-14.8); White Blood Cell Count 7.2 X10^3/uL (4.5-11.0)
[2024-01-21 12:15] LABS: Alanine Aminotransferase 14 IU/L (<35); Albumin 4.2 g/dL (3.5-5.0); Albumin Globulin Ratio 1.1 (1.0-2.8); Alkaline Phosphatase 60 U/L (38-126); Aspartate Aminotransferase 26 IU/L (14-36); Bilirubin Total 0.7 mg/dL (0.2-1.3); Blood Urea Nitrogen 13 mg/dL (7-17); Calcium 9.1 mg/dL (8.4-10.2); Carbon Dioxide 24 mmol/L (22-32); Chloride 103 mmol/L (98-107); Estimated Glomerular Filt Rate > 60 mL/min (>60); Globulin 3.8 g/dL (1.7-4.1); Glucose 164 mg/dL (70-100); HEMOLYSIS < 15 (0-50); Potassium 4.5 mmol/L (3.4-5.1); Sodium 135 mmol/L (137-145)
[2024-01-21 12:20] LABS: Hemoglobin A1C% w Est Avg Glu 7.7 % (4.0-6.0)
[2024-01-21 13:03] LABS: Vitamin B12 263 pg/mL (239-931)
== END ==
LOC: LAB 10:32
PROVIDERS: PCP Family Medicine; Referring Provider Family Medicine; Visit Provider Family Medicine
DX: D51.9 Vitamin B12 deficiency anemia, unspecified (principal); E78.5 Hyperlipidemia, unspecified; D64.9 Anemia, unspecified
CPT/HCPCS: 36415; 80053; 82607; 83036; 85025

== ENCOUNTER → 2024-02-02 13:55 | Outpatient (CLI) | payer BC, SELFPAY ==
--- NOTE | 2024-02-17 17:32 | DIAB.MNTFU ---
Follow-up Diabetes Medical Nutrition Therapy Assessment Name: Ivory Poe Date: 02/02/24 Time: 2-230p Dx: Type II Diabetes Ivory presents for follow-up accompanied by [employer] customer contact representative. Remembering Metformin now that she is taking with meals specifically. Higher BG in the evening due to fruit intake. May need more aggressive I:C at night. Wanting some snack ideas. Noticed she is losing some weight with lower insulin needs. Reports less urination. Though also reports continued LE neuropathy. Started automation with fast acting insulin now TDD: 80u (50u NPH + 30u R) 75% TDD: 60u per day wt dose: 230# x 0.23: 53u per day TDD basal: 56.5u / 2: 28u per day 28u / 24 hours; 1.15u per hour I:C: 450/56.5 TDD: 8g/1u; ----> I:C night 1:8 and day 1:6 ----> night 1:6 and day 1:6 ISF: 1800/56.5u TDD: 32mg/dl/u 06/2021 Lantus dose 50u, meal insulin ratio 1:[address] Pump settings reflect similar basal/bolus regimen. Physical Activity: Not discussed today Self-Monitoring Blood Glucose: [facility] system CGM. Increased elevations and reduced time in range since last visit. No pump automation yet due to using regular insulin. Today TIR: 22% high 78% in range 0% low av mg/dl GMI: NA Variation: 24% Last TIR 13% very high 26% high 60% in range 1% low av mg/dl Diabetes Medications: Metformin 1000mg BID Aspart insulin via pump Pertinent Labs: Hga1c 10.7% 02/2023 6.9% 06/2023 6.7% 10/2023 Past Medical History: (Last Reviewed 07/30/23 @ 11:25 by Danielito Taylor DO) Chronic cough Depression Diabetes (~2004) Diabetic neuropathy History of bipolar disorder Hyperlipidemia Hypernatremia Hyponatremia Seasonal allergic rhinitis Vaginal bleeding Well adult exam Nutrition Rx: Carbohydrates: Meal:30-45g Snack:15-30g Protein: Meal: 20-25g Snack: 7-14g Nutrition Diagnosis: Excessive CHO intake r/t nutrition knowledge deficit and needing increased i:C aeb elevations in evening and pt report Intervention: This participant was very receptive. Provided appropriate educational handouts. Discussed the following topics: Snack ideas Pairing macronutrients Carb recs for meals I:C ratio Weight changes with less insulin TIR goals and progress Goals: Take Metformin with breakfast and dinner- met Carb count vs guessing- met Restart gym- not discussed Contact [employer] rep after obtaining quick insulin- met Pair CHO and protein at snacks- new Aim for 45g at meals CHO- new Try low CHO snacks- new Follow-up: WILMA LUGO follow-up in 3-4 weeks Julia Judd RDN, BRITTNEY Certified Diabetes Care and Tea Bag Machine Tender P: [phone] Thank you for this referral
== END ==
PROVIDERS: PCP Family Medicine; Referring Provider Family Medicine
DX: E11.9 Type 2 diabetes mellitus without complications (principal); Z71.3 Dietary counseling and surveillance; Z79.4 Long term (current) use of insulin; Z79.84 Long term (current) use of oral hypoglycemic drugs
CPT/HCPCS: 97803

== ENCOUNTER → 2024-03-15 16:09 | Outpatient (CLI) | payer BC, SELFPAY ==
--- NOTE | 2024-04-26 08:10 | DIAB.MNTFU ---
Follow-up Diabetes Medical Nutrition Therapy Assessment Name: Ivory Poe Date: 03/15/24 Time: 410-540p Dx: Type II Diabetes Ivory presents for follow-up. Enjoying wearing her insulin pump and the results in BG improvement. Endorses waking with improved FBG consistently. Reports her insulin is now affordable. States her carb intake has increased since last visit, which is apparent in the increased TDD of insulin. RD messaged PCP team to increase her rx to 90u per day so she will not run out of insulin. Also discussed satiety with portions and reduced CHO intake. Endorses a lot of stress and disagreements with her . States he comments on her wt. Also stress with finances/work. Has seen a therapist in the past however this is costly. Has a friend she often confides in, but not recently. Feels overall lack of support. Needs to sync pump. Settings and reports limited today. TDD: 81.9u I:C: night 1:6 and day 1:6 Physical Activity: No gym due to work hours. Cancelled membership. Self-Monitoring Blood Glucose: Limited reports due to need to sync pump info. Overall slight increase in BG but in goal TIR. Today TIR: --- as of 02/12 2% very high 23% high 74% in range 1% low avg: mg/dl GMI: 6.9% Variation: % Last TIR 22% high 78% in range 0% low av mg/dl GMI: NA Variation: 24% Diabetes Medications: Metformin 1000mg BID Aspart insulin via pump Pertinent Labs: Hga1c 10.7% 02/2023 6.9% 06/2023 6.7% 10/2023 Past Medical History: Chronic cough Depression Diabetes (~2004) Diabetic neuropathy History of bipolar disorder Hyperlipidemia Hypernatremia Hyponatremia Seasonal allergic rhinitis Vaginal bleeding Well adult exam Nutrition Rx: Carbohydrates: Meal:30-45g Snack:15-30g Protein: Meal: 20-25g Snack: 7-14g Nutrition Diagnosis: Excessive CHO intake r/t stress eating and stage of change aeb increased bolusing and pt report Intervention: This participant was very receptive. Provided appropriate educational handouts. Discussed the following topics: Increased CHO intake and stress Recommendations for portions Adding more protein consistently for satiety and BG Physical activity Stress management and potential therapy options Importance of building a network of support and setting boundaries Created SMART goals for patient self-care and success. Goals: Pair CHO and protein at snacks- in progress Aim for 45g at meals CHO- in progress Try low CHO snacks- in progress Add protein to meals/snacks - new Consider restarting some kind of physical activity - new Call insurance about therapy options- new Follow-up: WILMA LUGO follow-up in 2-4 weeks Julia Judd RDN, [place] Certified Diabetes Care and Motor Home Electrical Foreman P: [phone] Thank you for this referral
== END ==
PROVIDERS: PCP Family Medicine; Referring Provider Family Medicine
DX: E11.9 Type 2 diabetes mellitus without complications (principal); Z79.4 Long term (current) use of insulin; Z96.41 Presence of insulin pump (external) (internal); Z79.84 Long term (current) use of oral hypoglycemic drugs; Z71.3 Dietary counseling and surveillance
CPT/HCPCS: 97803

== ENCOUNTER → 2024-04-12 10:58 | Outpatient (CLI) | payer BC, SELFPAY ==
--- NOTE | 2024-05-03 09:39 | DIAB.MNTFU ---
Follow-up Diabetes Medical Nutrition Therapy Assessment Name: Ivory Poe Date: 04/12/24 Time: 8509u-7104p Dx: Type II Diabetes Ivory presents for follow-up. TDD up again from last visit. BG continues in target range though. Has endorsed less cravings with food recently due to less swings in BG. Wanting more ideas for lower CHO meals. Worries about wt gain with higher insulin needs. Wants to work on diet and exerciise. Ran out of insulin at one point and used her old regular insulin, which resulted in low of 50mg/dl. back on rapid acting. Has not called about therapy options via insurance. Last visit TDD: 81.9u TDD: 88.9u I:C: night 1:6 and day 1:6 Diet recall: 830a: banana 12p: sping roll with meat, shrimp sn: banana 8-9p: chx noodle soup grazing after dinner: chips, crackers Physical Activity: No gym recently, but plans to sign up again. Self-Monitoring Blood Glucose: Limited data again with syncing issues. Slight improvement with TIR, less tme >250mg/dl. Today TIR: 0% very high 20% high 74% in range 2% low av mg/dl GMI: % Variation: % Last TIR: --- as of 02/12 2% very high 23% high 74% in range 1% low avg: mg/dl GMI: 6.9% Variation: % Diabetes Medications: Metformin 1000mg BID Aspart insulin via pump Pertinent Labs: Hga1c 10.7% 02/2023 6.9% 06/2023 6.7% 10/2023 Past Medical History: Chronic cough Depression Diabetes (~2004) Diabetic neuropathy History of bipolar disorder Hyperlipidemia Hypernatremia Hyponatremia Seasonal allergic rhinitis Vaginal bleeding Well adult exam Nutrition Rx: Carbohydrates: Meal:30-45g Snack:15-30g Protein: Meal: 20-25g Snack: 7-14g Nutrition Diagnosis: Excessive CHO intake r/t increased grazing in evening with small portions during the day aeb diet recall and increased TDD Intervention: This participant was very receptive. Provided appropriate educational handouts. Discussed the following topics: Brainstormed meal/snack timing and ideas Encouraged physical activity she enjoys Encouraged stress management and discussed options Troubleshooting insulin access and rx Created SMART goals for patient self-care and success. Goals: Add protein to meals/snacks - in progress Consider restarting some kind of physical activity - in progress Call insurance about therapy options- not met Start gym- new Eat q 3-5 hours- new Chat with pharmacy about insulin rx- new Follow-up: WILMA LUGO follow-up in 3-4 weeks Julia Judd RDN, [place] Certified Diabetes Care and Square Cutter P: [phone] Thank you for this referral
== END ==
PROVIDERS: PCP Family Medicine; Referring Provider Family Medicine
DX: E11.9 Type 2 diabetes mellitus without complications (principal); Z71.3 Dietary counseling and surveillance; Z79.84 Long term (current) use of oral hypoglycemic drugs; Z79.4 Long term (current) use of insulin; Z96.41 Presence of insulin pump (external) (internal)
CPT/HCPCS: 97803

== ENCOUNTER → 2024-05-10 13:57 | Outpatient (CLI) | payer BC, SELFPAY ==
--- NOTE | 2024-06-24 13:05 | DIAB.MNTFU ---
Follow-up Diabetes Medical Nutrition Therapy Assessment Name: Ivory Poe Date: 05/10/24 Time: 2-250p Dx: Type II Diabetes Ivory presents for follow-up. Average CHO per day 129g per pump reports. States she has been trying to reduce CHO intake and spacing out eating, less grazing. Endorses some SOB and swelling of LE, encouraged her to discuss this with PCP Diet recall; 6a: eggs, veggie +/- 1/2c oatmeal 9a: chips or fruit 12p: protein with salad 6p: protein, veg, potatoes OR chx with broccoli and rice 8-9p: peanuts and 1 fruit Last visit TDD: 88.9u TDD today: 84u I:C: night 1:6 and day 1:6 Diet recall: 830a: banana 12p: sping roll with meat, shrimp sn: banana 8-9p: chx noodle soup grazing after dinner: chips, crackers Physical Activity: Back on gym 3 days per week Self-Monitoring Blood Glucose: Reduced lows and time above 250mg/dl and otherwise similar TIR. Today TIR: 2% very high 23% high 75% in range 0% low av mg/dl GMI: 7.1% Variation: 26.3% Last TIR: 0% very high 20% high 74% in range 2% low av mg/dl GMI: % Variation: % Diabetes Medications: Metformin 1000mg BID Aspart insulin via pump Pertinent Labs: Hga1c 10.7% 02/2023 6.9% 06/2023 6.7% 10/2023 Past Medical History: Chronic cough Depression Diabetes (~2004) Diabetic neuropathy History of bipolar disorder Hyperlipidemia Hypernatremia Hyponatremia Seasonal allergic rhinitis Vaginal bleeding Well adult exam Nutrition Rx: Carbohydrates: Meal:30-45g Snack:15-30g Protein: Meal: 20-25g Snack: 7-14g Nutrition Diagnosis: Excessive CHO intake r/t increased grazing in evening with small portions during the day aeb diet recall and increased TDD- improved Intervention: This participant was very receptive. Provided appropriate educational handouts. Discussed the following topics: Carb portions and pairing with protein Strategies for increasing veggies and her progress with diet changes Physical activity goals Created SMART goals for patient self-care and success. Goals: Start gym- met Eat q 3-5 hours- in progress Chat with pharmacy about insulin rx- met Continue nutrition changes- new Continue gym 3x per week- new Follow-up: WILMA LUGO follow-up in 4-6 weeks Julia Judd RDN, [place] Certified Diabetes Care and Biodiesel Plant Superintendent P: [phone] Thank you for this referral
== END ==
LOC: DIET 13:57
PROVIDERS: PCP Family Medicine; Referring Provider Family Medicine
DX: E11.9 Type 2 diabetes mellitus without complications (principal); Z71.3 Dietary counseling and surveillance; Z96.41 Presence of insulin pump (external) (internal); Z79.84 Long term (current) use of oral hypoglycemic drugs; Z79.4 Long term (current) use of insulin
CPT/HCPCS: 97803

== ENCOUNTER → 2024-05-13 07:42 | Outpatient (CLI) | payer BC, SELFPAY ==
[2024-05-13 08:05] LABS: Add Manual Diff / Slide Review NO; Basophils Absolute Auto 0 /uL (0-100); Basophils Percent Auto 0.4 % (0-2); Eosinophils Absolute Auto 200 /uL (0-450); Eosinophils Percent Auto 2.8 % (2-4); Hematocrit 39.4 % (36-46); Hemoglobin 12.3 g/dL (12.0-16.0); Lymphocytes Absolute Auto 1400 /uL (1100-4500); Lymphocytes Percent Auto 21.5 % (25-40); Mean Corpuscular HGB Conc 31.3 % (30-36); Mean Corpuscular Hemoglobin 24.5 PG (26-34); Mean Corpuscular Volume 78.2 fL (80-100); Monocytes Absolute Auto 600 /uL (0-900); Monocytes Percent Auto 8.5 % (3-14); Neutrophils Absolute Auto 4400 /uL (1500-7000); Neutrophils Percent Auto 66.8 % (50-75); Platelet Count 243 X10^3/uL (150-400); Red Blood Cell Count 5.05 X10^6/uL (4.0-5.2); Red Cell Distribution Width 16.9 % (11.6-14.8); White Blood Cell Count 6.5 X10^3/uL (4.5-11.0)
[2024-05-13 08:14] LABS: Creatinine Urine Random 46.29 mg/dL
[2024-05-13 08:23] LABS: HEMOLYSIS < 15 (0-50); Iron 53 ug/dL (37-170)
[2024-05-13 08:26] LABS: Alanine Aminotransferase 16 IU/L (<35); Albumin 4.1 g/dL (3.5-5.0); Albumin Globulin Ratio 1.2 (1.0-2.8); Alkaline Phosphatase 61 U/L (38-126); Aspartate Aminotransferase 27 IU/L (14-36); BUN Creatinine Ratio 18.5 (6-22); Bilirubin Total 0.7 mg/dL (0.2-1.3); Blood Urea Nitrogen 12 mg/dL (7-17); Calcium 9.1 mg/dL (8.4-10.2); Carbon Dioxide 26 mmol/L (22-32); Chloride 105 mmol/L (98-107); Cholesterol 197 mg/dL (140-199); Estimated Glomerular Filt Rate > 60 mL/min (>60); Globulin 3.4 g/dL (1.7-4.1); Glucose 110 mg/dL (70-100); HDL Cholesterol 36 mg/dL (40-60); HEMOLYSIS < 15 (0-50); LDL Cholesterol Calculated 151 mg/dL (<100); Potassium 5.3 mmol/L (3.4-5.1); Sodium 137 mmol/L (137-145); Total Protein 7.5 g/dL (6.3-8.2); Triglycerides 50 mg/dL (35-150)
[2024-05-13 08:33] LABS: Percent Iron Saturation 13 % (15-50); Total Iron Binding Capacity 416 ug/dL (265-497); Transferrin 374 mg/dL (206-381)
[2024-05-13 08:33] LABS: Microalbumin Urine Random 45.9 mg/dL (0-1.6)
[2024-05-13 09:13] LABS: Vitamin B12 930 pg/mL (239-931)
[2024-05-16 09:46] LABS: Hemoglobin A1C% w Est Avg Glu 6.7 % (4.0-6.0)
== END ==
PROVIDERS: PCP Family Medicine; Referring Provider Family Medicine; Visit Provider Family Medicine
DX: D51.9 Vitamin B12 deficiency anemia, unspecified (principal); E78.5 Hyperlipidemia, unspecified; E11.65 Type 2 diabetes mellitus with hyperglycemia; R80.9 Proteinuria, unspecified; E11.29 Type 2 diabetes mellitus with other diabetic kidney complication
CPT/HCPCS: 36415; 80053; 80061; 82043; 82570; 82607; 83036; 83540; 83550; 85025

== ENCOUNTER → 2024-07-05 13:54 | Outpatient (CLI) | payer BC, SELFPAY ==
--- NOTE | 2024-07-05 14:24 | DIAB.FU ---
Follow-up Diabetes Education Assessment Name: Ivory Poe Date: 07/05/24 Time: [id number] Dx: Type II Diabetes Ivory presents for follow-up. Brought paperwork for insurance appeal r/t insulin pump for review. Also reports not bolusing lately, trying to avoid insulin but this has actually increased her TDD from last visit. Trying to lose wt. Sometimes feels as though if she boluses, this gives her permission to eat more. Reports less cravings since BG are more regulated with insulin pump therapy. Was hyperkalemic in last labs, takes a potassium supplement. Last visit TDD: 84u TDD today: 106.7u I:C: night 1:6 and day 1:6 Physical Activity: Going to the gym 2-3 days per week Self-Monitoring Blood Glucose: Today TIR: 3% very high 23% high 74% in range 0% low av mg/dl GMI: 7.0% std dev: 45mg/dl Variation: 29.3% Last TIR: 2% very high 23% high 75% in range 0% low av mg/dl GMI: 7.1% Variation: 26.3% Diabetes Medications: Metformin 1000mg BID Aspart insulin via pump Pertinent Labs: Hga1c 10.7% 02/2023 6.9% 06/2023 6.7% 10/2023 7.7% 01/2024 6.7% 05/2024 Past Medical History: Chronic cough Depression Diabetes (~2004) Diabetic neuropathy History of bipolar disorder Hyperlipidemia Hypernatremia Hyponatremia Seasonal allergic rhinitis Vaginal bleeding Well adult exam Intervention: This participant was very receptive. Provided appropriate educational handouts. Discussed the following topics: Importance of bolusing Provided any medical details needed to fill out appeal paperwork Physical activity Potassium levels in labs Created SMART goals for patient self-care and success. Goals: Continue nutrition changes- not discussed Continue gym 3x per week- met D/c potassium supplement- new Start bolusing more consistently- new send appeal paperwork to insurance- new Follow-up: WILMA LUGO follow-up in 4 weeks Julia Judd RDN, [place] Certified Diabetes Care and Utilization Review Coordinator P: [phone] Thank you for this referral
== END ==
LOC: DIET 13:54
PROVIDERS: PCP Family Medicine; Referring Provider Family Medicine
DX: E11.9 Type 2 diabetes mellitus without complications (principal); Z79.84 Long term (current) use of oral hypoglycemic drugs; Z79.4 Long term (current) use of insulin; Z96.41 Presence of insulin pump (external) (internal)
CPT/HCPCS: G0108

== ENCOUNTER → 2024-08-02 14:08 | Outpatient (CLI) | payer BC, SELFPAY ==
--- NOTE | 2024-08-02 15:43 | DIAB.MNTFU ---
Follow-up Diabetes Medical Nutrition Therapy Assessment Name: Ivory Poe Date: 08/02/24 Time: 210-310p Dx: Type II Diabetes Ivory presents for follow-up. Continues to have difficulty managing coverage for her insulin pump. Brought paperwork in requesting a healthcare industrial relations representative. RD will investigate. Reports wt gain and feels wt loss very difficult at this time. She feels this is r/t insulin therapy. Endorses 5 hour shifts for work x 5 days per week. Eating 3 main meals per day and endorses high kcal grazing in the evening. Also endorses some SOB, which she reports feels r/t wt gain. TDD: 84u---- 106.7u----- 109u I:C: night 1:6 and day 1:6 Anthropometrics: Ht: 67 Wt: 252# reported 07/2024 236# PCP 05/2024 Reports last time her wt was at this amt it was d/t being depressed and eating as a result. Physical Activity: Going to the gym 2-3 days per week. bike x 5 min and resistance training. use to use elliptical for 30 mins but feels she does not have the stamina anymore. Self-Monitoring Blood Glucose: Acquired TIR from pump since last upload was 07/16. Today TIR: 0% very high 22% high 73% in range 0% low av mg/dl GMI: % std dev: 32.5mg/dl Variation: % Last TIR: 3% very high 23% high 74% in range 0% low av mg/dl GMI: 7.0% std dev: 45mg/dl Variation: 29.3% Diabetes Medications: Metformin 1000mg BID Aspart insulin via pump Pertinent Labs: Hga1c 10.7% 02/2023 6.9% 06/2023 6.7% 10/2023 7.7% 01/2024 6.7% 05/2024 Past Medical History: Chronic cough Depression Diabetes (~2004) Diabetic neuropathy History of bipolar disorder Hyperlipidemia Hypernatremia Hyponatremia Seasonal allergic rhinitis Vaginal bleeding Well adult exam Nutrition Rx: Carbohydrates: Meal:30-45g Snack:15-30g Protein: Meal: 20-25g Snack: 7-14g Nutrition Diagnosis: Excessive CHO intake r/t increased grazing in evening with limited eating occurrences during the day aeb diet recall and increased TDD Intervention: This participant was very receptive. Provided appropriate educational handouts. Discussed the following topics: Physical activity goals Relationship between insulin, food intake, and wt gain TIR and BG goals Troubleshooting insulin pump coverage Weight management hx and goals Meal/snack timing CHO portions and recs Macro pairing Created SMART goals for patient self-care and success. Goals: D/c potassium supplement- met Start bolusing more consistently- in progress send appeal paperwork to insurance- met Try Elliptical x 10 mins- new Eat q 3-4 hours- new Follow-up: WILMA LUGO follow-up in 2-3 weeks Julia Judd RDN, [place] Certified Diabetes Care and [facility] P: [phone] Thank you for this referral
== END ==
PROVIDERS: PCP Family Medicine; Referring Provider Family Medicine
DX: E11.9 Type 2 diabetes mellitus without complications (principal); Z71.3 Dietary counseling and surveillance; Z96.41 Presence of insulin pump (external) (internal); Z79.4 Long term (current) use of insulin; Z79.84 Long term (current) use of oral hypoglycemic drugs
CPT/HCPCS: 97803

== ENCOUNTER → 2024-08-23 15:12 | Outpatient (CLI) | payer BC, SELFPAY ==
--- NOTE | 2024-09-01 15:20 | DIAB.FU ---
Follow-up Diabetes Education Assessment Name: Ivory Poe Date: 08/23/24 Time: 315-978p Dx: Type II Diabetes Ivory presents for follow-up. Today her main concern is skin rxn to CGM sensor. Has d/c'd wear due to this. Skin rxn looks red lining around where sensor was. has healed since removal. She attributes this new rxn to warmer weather and movement at work. We did discuss potential for skin barriers, but she feels adamant today about taking a break from her pump therapy. Wants to go back to MDI. RD messaged PCP regarding this. [facility] to [facility]. Provided sample and discussed CGM changes in the fall with [employer]. States she felt her weight increased with pump use due to feeling more freedom to eat what she wanted to with the tech, despite our conversations about moderation. Attributes some let swelling to pump use, though this seems less likely given no other insulin rxn reported. LLE swelling improved. Predicted elevated BG since she has d/c'd pump therapy and not started MDI. Anthropometrics: Ht: 67 Wt: <240# reported 252# reported 07/2024 236# PCP 05/2024 Physical Activity: Not discussed today Self-Monitoring Blood Glucose: None at this time. Last TIR: 0% very high 22% high 73% in range 0% low av mg/dl GMI: % std dev: 32.5mg/dl Variation: % Diabetes Medications: Metformin 1000mg BID Aspart insulin via pump--- on hold Pertinent Labs: Hga1c 10.7% 02/2023 6.9% 06/2023 6.7% 10/2023 7.7% 01/2024 6.7% 05/2024 Past Medical History: Chronic cough Depression Diabetes (~2004) Diabetic neuropathy History of bipolar disorder Hyperlipidemia Hypernatremia Hyponatremia Seasonal allergic rhinitis Vaginal bleeding Well adult exam Intervention: This participant was very receptive. Provided appropriate educational handouts. Discussed the following topics: Diet changes, insulin use, and wt gain Skin irritation solutions MDI vs pump therapy CGM options and changes come this Fall Created SMART goals for patient self-care and success. Goals: Try Elliptical x 10 mins- not met Eat q 3-4 hours- in progress If rx'd, continuous pickling line pickler basal/bolus insulin- new Follow-up: WILMA LUGO follow-up in 2-3 weeks. Today we discussed solutions to skin rxn, but Ivory would like to take a break from pump therapy. RD messaged PCP about CGM and MDI scripts. Julia Judd RDN, [facility] Certified Diabetes Care and Health Sanitarian P: [phone] Thank you for this referral
== END ==
LOC: DIET 15:13
PROVIDERS: PCP Internal Medicine Rheumatology; Referring Provider Internal Medicine Rheumatology
DX: E11.9 Type 2 diabetes mellitus without complications (principal); Z71.3 Dietary counseling and surveillance; Z79.84 Long term (current) use of oral hypoglycemic drugs
CPT/HCPCS: G0108

== ENCOUNTER → 2024-09-27 11:07 | Outpatient (CLI) | payer BC, SELFPAY ==
--- NOTE | 2024-10-12 14:39 | DIAB.FU ---
Follow-up Diabetes Education Assessment Name: Ivory Poe Date: 09/27/24 Time: 1115a-12p Dx: Type II Diabetes Ivory presents for follow-up. Has been using MDI and BG are considerably higher than with pump therapy. She is considering returning to pump therapy with the right tools to prevent skin irritation. Reports swollen legs and SOB. Encouraged her to contact PCP and/or go to walk in [facility]. Reports increased meat intake and carb. Noticed her diet choices are not related to her pump use, which was another reason she wanted to d/c pump use last visit. States she has increased appetite and no self control Anthropometrics: Ht: 67 Wt: no wt 252# reported 07/2024 236# PCP 05/2024 Physical Activity: Not discussed today Self-Monitoring Blood Glucose: Increased hyperglycemia since d/c of pump and restart of MDI TIR: 14% very high 39% high 47% in range 0% low av mg/dl GMI: 7.8% std dev: mg/dl Variation: 29.5% Last TIR: 0% very high 22% high 73% in range 0% low av mg/dl GMI: % std dev: 32.5mg/dl Variation: % Diabetes Medications: Metformin 1000mg BID Aspart insulin via pump--- on hold 30u Lantus BID 15-20u Aspart ac Pertinent Labs: Hga1c 10.7% 02/2023 6.9% 06/2023 6.7% 10/2023 7.7% 01/2024 6.7% 05/2024 Past Medical History: Chronic cough Depression Diabetes (~2004) Diabetic neuropathy History of bipolar disorder Hyperlipidemia Hypernatremia Hyponatremia Seasonal allergic rhinitis Vaginal bleeding Well adult exam Intervention: This participant was very receptive. Provided appropriate educational handouts. Discussed the following topics: Diet changes, insulin use, and wt gain Skin irritation solutions MDI vs pump therapy Impact of Na on swelling Encouraged medical visit for swelling and SOB Created SMART goals for patient self-care and success. Goals: If rx'd, pickling machine operator basal/bolus insulin- met Visit WIC or contact PCP- new Call insurance about pump supplies- new Restart pump- new Avoid high salt foods- new Follow-up: WILMA LUGO follow-up in 3 weeks. Julia Judd RDN, [place] Certified Diabetes Care and Media Analyst P: [phone] Thank you for this referral
== END ==
LOC: DIET 11:08
PROVIDERS: PCP Internal Medicine Rheumatology
DX: E11.65 Type 2 diabetes mellitus with hyperglycemia (principal); Z71.3 Dietary counseling and surveillance; Z79.84 Long term (current) use of oral hypoglycemic drugs; Z79.4 Long term (current) use of insulin
CPT/HCPCS: G0108

== ENCOUNTER → 2024-09-28 15:46 | Outpatient (CLI) | payer BC, SELFPAY ==
--- NOTE | 2024-09-28 15:47 | DI.US.S_ITS ---
PROCEDURE: US PERIPH VENOUS LOW EXTREM LT INDICATIONS: screening TECHNIQUE: Real-time imaging, as well as color and pulse Doppler interrogation, were performed of the lower extremity deep veins from the inguinal ligament to the popliteal fossa, with documentation of the visualized calf veins. COMPARISON: None. FINDINGS: The common femoral, femoral, popliteal, and the visualized calf veins are normally compressible, and free of intraluminal thrombus. Color and pulse Doppler demonstrate normal phasic intraluminal flow. There is normal augmentation response to distal compression maneuver. IMPRESSION: No findings of lower extremity deep venous thrombosis. Dictated by: Jones Spears M.D. on 09/28/2024 at 16:02 Approved by: Jones Spears M.D. on 09/28/2024 at 16:02
== END ==
LOC: US 15:47
PROVIDERS: PCP Family Medicine; Referring Provider Family Medicine; Visit Provider Family Medicine
DX: M79.89 Other specified soft tissue disorders (principal)
CPT/HCPCS: 93971

== ENCOUNTER → 2024-10-18 10:04 | Outpatient (CLI) | payer BC, SELFPAY ==
--- NOTE | 2024-10-18 10:57 | DIAB.MNTFU ---
Follow-up Diabetes Medical Nutrition Therapy Assessment Name: Ivory Poe Date: 10/18/24 Time: 7842-0746s Dx: Type II Diabetes Ivory presents for follow-up. Has been using MDI and BG continue higher than goal and higher than with pump therapy. Attributes some LE swelling to pump use, however we discussed this is more likely to fluid retention from other etiology considering she has needed HCTZ more recently to reduce LE swelling, and she has not been using her pump. Saw PCP for LE swelling, r/o DVT. increased lisinopril and added HCTZ at last PCP visit, which she reports has helped. States she has reduced Na intake with reduced seasoning with table salt. Wants to continue on MDI at this time due to feeling as though her pump gave her reportedly less control over her food intake. She reports feeling as though she had more permission to eat since the pump would correct BG for her. Feels with MDI and CGM she has to be more wearing of food intake and BG. Prior to d/c of pump BG was often 70% or more in range. Now often in the 45-55% in goal at visits with 2 week summaries. Diet Recall: 10atofu, veggies, 1 fruit 2-3p: 2/3c rice with veggies, tofu 4-7p: nothing or salad and 1/2 fruit HS: chips or nuts water, unsweetened tea Anthropometrics: Ht: 67 Wt: 249# 09/2024 252# reported 07/2024 236# PCP 05/2024 Physical Activity: Not discussed today Self-Monitoring Blood Glucose: Increased hyperglycemia since d/c of pump and restart of MDI, though improved since last visit. Some mornings with elevated FBg and often elevated after dinner, sometimes lunch as well. TIR: 11% very high 35% high 54% in range 0% low av mg/dl GMI: 7.6% std dev: mg/dl Variation: 29% Last Visit TIR: 14% very high 39% high 47% in range 0% low av mg/dl GMI: 7.8% std dev: mg/dl Variation: 29.5% Last TIR with pump therapy : 0% very high 22% high 73% in range 0% low av mg/dl GMI: % std dev: 32.5mg/dl Variation: % Diabetes Medications: Metformin 1000mg BID Aspart insulin via pump--- on hold 30u Lantus BID 15-20u Aspart ac---- 5u at meals Pertinent Labs: Hga1c 10.7% 02/2023 6.9% 06/2023 6.7% 10/2023 7.7% 01/2024 6.7% 05/2024 Past Medical History: Chronic cough Depression Diabetes (~2004) Diabetic neuropathy History of bipolar disorder Hyperlipidemia Hypernatremia Hyponatremia Seasonal allergic rhinitis Vaginal bleeding Well adult exam Nutrition Rx: Carbohydrates: Meal:30-45gSnack:15-30g Protein: Meal: 20-25gSnack: 7-14g Nutrition Diagnosis: Excessive CHO intake r/t increased grazing in evening with sometimes skipping dinner aeb diet recall and CGM reports with elevated postprandial BG Intervention: This participant was very receptive. Provided appropriate educational handouts. Discussed the following topics: Diet changes, insulin use, and wt gain MDI vs pump therapy insulin dosing at meals Importance of meal/snack timing Encouraged consistent protein with meals/snacks Created SMART goals for patient self-care and success. Goals: Visit WIC or contact PCP- met Call insurance about pump supplies- not met Restart pump- not met-d/c at this time Avoid high salt foods- continue Try 8-10u at larger meals- new Eat dinner consistently to avoid HS snacking portions- new Aim for protein with each meal- new Follow-up: WILMA LUGO follow-up in [address] recommend patient retry insulin pump therapy given improved BG with use, however she would like to continue with MDI at this time. States she will reconsider again in the future. If BG TIR can be in 70% or more with MDI, RD would feel more comfortable with her staying on MDI. Currently under that goal. Julia Judd RDN, [facility] [place]NOTE 2[place] Certified Diabetes Care and Boat Dock Operator P: [phone] Thank you for this referral
== END ==
LOC: DIET 10:05
PROVIDERS: PCP Family Medicine
DX: E11.65 Type 2 diabetes mellitus with hyperglycemia (principal); Z71.3 Dietary counseling and surveillance; Z79.84 Long term (current) use of oral hypoglycemic drugs; Z79.4 Long term (current) use of insulin
CPT/HCPCS: 97803

== ENCOUNTER → 2024-11-15 10:14 | Outpatient (CLI) | payer BC, SELFPAY ==
--- NOTE | 2024-12-13 10:59 | DIAB.FU ---
Follow-up Diabetes Education Assessment Name: Ivory Poe Date: 11/15/24 Time: 6602-6709a Dx: Type II Diabetes Ivory presents for follow-up. Due for labs at the time of this appt. Due for eye appt. Has been working on diet and choosing lean proteins. Still doing MDI vs insulin pump. States she is happy with MDI at this time. Endorses wt loss since she has to be more conscious of diet intake with MDI per report. For boluses she is using 5-10u at meals and sometimes 2-4u for correction. Anthropometrics: Ht: 67 Wt: 228# reported 11/2024 249# 09/2024 252# reported 07/2024 236# PCP 05/2024 Physical Activity: Reports walking 3x per week for 30 min. Considering going back to the gym. Self-Monitoring Blood Glucose: Improved TIR since last visit and with previous TIR on pump therapy. TIR: 1% very high 17% high 82% in range 0% low av mg/dl GMI: 6.9% std dev: mg/dl Variation: 26.1% Last Visit TIR: 11% very high 35% high 54% in range 0% low av mg/dl GMI: 7.6% std dev: mg/dl Variation: 29% Last TIR with pump therapy : 0% very high 22% high 73% in range 0% low av mg/dl GMI: % std dev: 32.5mg/dl Variation: % Diabetes Medications: Metformin 1000mg BID Aspart insulin via pump--- d/c 30u Lantus BID 15-20u Aspart ac---- 5u at meals Pertinent Labs: Hga1c 10.7% 02/2023 6.9% 06/2023 6.7% 10/2023 7.7% 01/2024 6.7% 05/2024 Past Medical History: Chronic cough Depression Diabetes (~2004) Diabetic neuropathy History of bipolar disorder Hyperlipidemia Hypernatremia Hyponatremia Seasonal allergic rhinitis Vaginal bleeding Well adult exam Intervention: This participant was very receptive. Provided appropriate educational handouts. Discussed the following topics: Dosing insulin recs Reducing Dm complications Physical activity Created SMART goals for patient self-care and success. Goals: Try 8-10u at larger meals- improved Eat dinner consistently to avoid HS snacking portions- met Aim for protein with each meal- met Attend gym 3 days per week- new Schedule Eye appt- new Follow-up: WILMA LUGO follow-up in 6 weeks. Julia Judd RDN, [facility] Certified Diabetes Care and Top Printing Press Operator P: [phone] Thank you for this referral
== END ==
PROVIDERS: PCP Family Medicine; Referring Provider Family Medicine
DX: E11.9 Type 2 diabetes mellitus without complications (principal); Z71.3 Dietary counseling and surveillance; Z79.84 Long term (current) use of oral hypoglycemic drugs; Z79.4 Long term (current) use of insulin; Z96.41 Presence of insulin pump (external) (internal)
CPT/HCPCS: G0108

== ENCOUNTER → 2024-12-27 13:06 | Outpatient (CLI) | payer BC, SELFPAY ==
--- NOTE | 2025-02-01 11:04 | DIAB.MNTFU ---
Follow-up Diabetes Medical Nutrition Therapy Assessment Name: Ivory Poe Date: 12/27/24 Time: 115-2p Dx: Type II Diabetes Ivory presents for follow-up. Endorses increased veggie intake. Feels that her legs are gaining more muscle recently. More energy per report. Recent eye appt went well. PCP in February. States she has been increasing CHo intake some with gym attendance. sometimes does not bolus for meals due to forgetting insulin at home. Meal timing seems inconsistent with work and gym schedule. Some meals skipped resulting in higher intake later in the day or grazing. Anthropometrics: Ht: 67 Wt: 229# reported 12/2024 228# reported 11/2024 249# 09/2024 252# reported 07/2024 236# PCP 05/2024 Physical Activity: Gym 5-6 day sper week for 60 min Self-Monitoring Blood Glucose: Increased hyperglycemia recently TIR: 17% very high 33% high 49% in range 0% low av mg/dl GMI: 7.8% std dev: mg/dl Variation: 32.8% Last Visit TIR: 1% very high 17% high 82% in range 0% low av mg/dl GMI: 6.9% std dev: mg/dl Variation: 26.1% Last TIR with pump therapy : 0% very high 22% high 73% in range 0% low av mg/dl GMI: % std dev: 32.5mg/dl Variation: % Diabetes Medications: Metformin 1000mg BID 30u Lantus BID 15-20u Aspart ac---- 5u at meals Pertinent Labs: Hga1c 10.7% 02/2023 6.9% 06/2023 6.7% 10/2023 7.7% 01/2024 6.7% 05/2024 Past Medical History: Chronic cough Depression Diabetes (~2004) Diabetic neuropathy History of bipolar disorder Hyperlipidemia Hypernatremia Hyponatremia Seasonal allergic rhinitis Vaginal bleeding Well adult exam Nutrition Rx: Carbohydrates: Meal:30-45gSnack:15-30g Protein: Meal: 20-25gSnack: 7-14g Nutrition Diagnosis: Excessive CHO intake r/t increased grazing in evening with sometimes skipping dinner aeb diet recall and CGM reports with elevated postprandial BG Intervention: This participant was very receptive. Provided appropriate educational handouts. Discussed the following topics: Strategies for carrying insulin on hand for boluses Physical activity meal timing Created SMART goals for patient self-care and success. Goals: Attend gym 3 days per week- met Schedule Eye appt- met Carry Aspart in your bag- new Try to eat q 3-4 hours- new Follow-up: WILMA LUGO follow-up in 3-4 weeks. Julia Judd RDN, QUINTINES Certified Diabetes Care and Licensed Clinical Psychologist P: [phone] Thank you for this referral
== END ==
LOC: DIET 13:06
PROVIDERS: PCP Family Medicine; Referring Provider Family Medicine
DX: E11.65 Type 2 diabetes mellitus with hyperglycemia (principal); Z71.3 Dietary counseling and surveillance; Z79.84 Long term (current) use of oral hypoglycemic drugs; Z79.4 Long term (current) use of insulin
CPT/HCPCS: 97803

== ENCOUNTER → 2025-01-24 11:07 | Outpatient (CLI) | payer BC, SELFPAY ==
--- NOTE | 2025-02-09 10:06 | DIAB.MNTFU ---
Follow-up Diabetes Medical Nutrition Therapy Assessment Name: Ivory Poe Date: 01/24/25 Time: 8550w-1210p Dx: Type II Diabetes Ivory presents for follow-up. Craving chips lately, substituting celery and hummus or Malay yogurt with fruit. Seeing elevated BG after udon noodles, portions vs simple CHO digestion. Breakfast is balanced. Lunch with rice and pro and veggies. Sometimes skipping meals due to work and then results in snacking/grazing at night. States going to the gym allows her to keep BG in goal without bolusing in the morning. Often trying to skip bolusing. Historically had a negative connotation or guilt with insulin injections. Use to have salad at lunch time that she loved. Anthropometrics: Ht: 67 Wt: 229# reported 12/2024 228# reported 11/2024 249# 09/2024 252# reported 07/2024 236# PCP 05/2024 Physical Activity: Gym 5 day sper week for 60 min Self-Monitoring Blood Glucose: Improved BG with reduced time >250mg/dl. Still having excessive time above goal. TIR: 6% very high 46% high 48% in range 0% low av mg/dl GMI: 7.7% std dev: mg/dl Variation: 24.4% Last Visit TIR: 17% very high 33% high 49% in range 0% low av mg/dl GMI: 7.8% std dev: mg/dl Variation: 32.8% Last TIR with pump therapy : 0% very high 22% high 73% in range 0% low av mg/dl GMI: % std dev: 32.5mg/dl Variation: % Diabetes Medications Metformin 1000mg BID 30u Lantus BID 15-20u Aspart ac---- 5u at meals Pertinent Labs: Hga1c 10.7% 02/2023 6.9% 06/2023 6.7% 10/2023 7.7% 01/2024 6.7% 05/2024 Past Medical History: Chronic cough Depression Diabetes (~2004) Diabetic neuropathy History of bipolar disorder Hyperlipidemia Hypernatremia Hyponatremia Seasonal allergic rhinitis Vaginal bleeding Well adult exam Nutrition Rx: Carbohydrates: Meal:30-45gSnack:15-30g Protein: Meal: 20-25gSnack: 7-14g Nutrition Diagnosis: Excessive CHO intake r/t increased grazing in evening with sometimes skipping dinner aeb diet recall and CGM reports with elevated postprandial BG Intervention: This participant was very receptive. Provided appropriate educational handouts. Discussed the following topics: Meal/snack timing Physical activity and insulin dosing Strategies for lower CHO intake Feelings around bolusing Created SMART goals for patient self-care and success. Goals: Carry Aspart in your bag- met Try to eat q 3-4 hours- in progress Bolus pre meals, unless going to the gym right away- new Pair macronutrients- new Don't skip meals- new Salad at lunch- new Follow-up: WILMA LUGO follow-up in 3-4 weeks. Julia Judd RDN, BRITTNEY Certified Diabetes Care and [employer] P: [phone] Thank you for this referral
== END ==
LOC: DIET 11:08
PROVIDERS: PCP Family Medicine; Referring Provider Family Medicine
DX: E11.9 Type 2 diabetes mellitus without complications (principal); Z71.3 Dietary counseling and surveillance; Z79.84 Long term (current) use of oral hypoglycemic drugs; Z79.4 Long term (current) use of insulin
CPT/HCPCS: 97803

== ENCOUNTER → 2025-02-20 09:47 | Outpatient (CLI) | payer OTHER, SELFPAY ==
[2025-02-20 11:40] LABS: Hemoglobin A1C% w Est Avg Glu 7.3 % (4.0-6.0)
[2025-02-20 12:01] LABS: Alanine Aminotransferase 13 IU/L (<35); Albumin 4.0 g/dL (3.5-5.0); Albumin Globulin Ratio 1.3 (1.0-2.8); Alkaline Phosphatase 58 U/L (38-126); Blood Urea Nitrogen 14 mg/dL (7-17); Calcium 9.1 mg/dL (8.4-10.2); Carbon Dioxide 22 mmol/L (22-32); Chloride 100 mmol/L (98-107); Estimated Glomerular Filt Rate > 60 mL/min (>60); Globulin 3.2 g/dL (1.7-4.1); Glucose 67 mg/dL (70-99); HEMOLYSIS < 15 (0-50); Potassium 3.7 mmol/L (3.4-5.1); Sodium 134 mmol/L (137-145); Total Protein 7.2 g/dL (6.3-8.2)
[2025-02-20 12:28] LABS: TSH w/ Reflex to FT4 1.32 uIU/mL (0.47-4.68)
== END ==
LOC: LAB 09:50
PROVIDERS: PCP Family Medicine; Referring Provider Family Medicine; Visit Provider Family Medicine
DX: I10 Essential (primary) hypertension (principal); E78.00 Pure hypercholesterolemia, unspecified; E11.65 Type 2 diabetes mellitus with hyperglycemia
CPT/HCPCS: 36415; 80053; 83036; 84443

== ENCOUNTER → 2025-03-07 09:25 | Outpatient (CLI) | payer OTHER, SELFPAY ==
--- NOTE | 2025-03-07 10:02 | DIAB.FU ---
Follow-up Diabetes Education Assessment Name: Ivory Poe Date: 03/07/25 Time: 930-10a Dx: Type II Diabetes Ivory presents for follow-up. Endorses more baking as of recent. Higher CHO intake with holidays. Increased hgA1c recently. Excessive hyperglycemia per CGM. Bolusing more but still having elevations. Was out of Lantus for 2 days, but now back on. New [employer] insurance is coving meds better and dental. Goals reported include more self care. Wants to go back to the gym. Currently eating 3-4 x per day + snacks. Cookies x 3-4+ per day. Interested in GLP1. Anthropometrics: Ht: 67 Wt: 229# reported 12/2024 228# reported 11/2024 249# 09/2024 252# reported 07/2024 236# PCP 05/2024 Physical Activity: Gym 5 days per week for 60 min discontinued with holidays. Self-Monitoring Blood Glucose: Increased hypgerlycemia. Still having excessive time above goal. TIR: 24% very high 36% high 40% in range 0% low av mg/dl GMI: 8.2% std dev: mg/dl Variation: 32.7% Last Visit TIR: 6% very high 46% high 48% in range 0% low av mg/dl GMI: 7.7% std dev: mg/dl Variation: 24.4% Last TIR with pump therapy : 0% very high 22% high 73% in range 0% low av mg/dl GMI: % std dev: 32.5mg/dl Variation: % Diabetes Medications Metformin 1000mg BID 30u Lantus BID 15-20u Aspart ac---- 5u at meals --- up to 10-20u recently Pertinent Labs: Hga1c 10.7% 02/2023 6.9% 06/2023 6.7% 10/2023 7.7% 01/2024 6.7% 05/2024 7.3% 02/2025 Past Medical History: Chronic cough Depression Diabetes (~2004) Diabetic neuropathy History of bipolar disorder Hyperlipidemia Hypernatremia Hyponatremia Seasonal allergic rhinitis Vaginal bleeding Well adult exam Intervention: This participant was very receptive. Provided appropriate educational handouts. Discussed the following topics: Physical activity Insulin dosing Strategies for lower CHO intake GLP1 action, benefits, side effects. RD messaged provider. Created SMART goals for patient self-care and success. Goals: Bolus pre meals, unless going to the gym right away- in progress Pair macronutrients- in progress Don't skip meals- met Salad at lunch- in progress go back to the gym this week- new Limit cookie to 1 per day- new Follow-up: WILMA LUGO follow-up in 4 weeks Julia Judd RDN, BRITTNEY Certified Diabetes Care and Quality Coordinator P: [phone] Thank you for this referral
== END ==
LOC: DIET 09:27
PROVIDERS: PCP Family Medicine; Referring Provider Family Medicine
DX: E11.65 Type 2 diabetes mellitus with hyperglycemia (principal); Z71.3 Dietary counseling and surveillance; Z79.84 Long term (current) use of oral hypoglycemic drugs; Z79.4 Long term (current) use of insulin
CPT/HCPCS: G0108